=== PATIENT | male | born 1970 | race Caucasian/White ===

== ENCOUNTER 2016-12-09 19:32 | Emergency (ER) | payer BC, MEDICARE ==
[~2016-12-09] VITALS: Ht 170.1 cm; Wt 187.8 kg
[~2016-12-09 19:32] MED LIST: ALBUTEROL0.09 MG/A2 IH; AMARYL1 MG PO; AMARYL2 MG PO; AMARYL4 MG PO; AUGMENTIN 875 M1 TAB PO; AUGMENTIN XR 101 TER PO; CIPRODEX 0.3%-7.5 ML OT; CLARITIN10 MG PO; CLINDAMYCIN HC150 MG PO; CLINDAMYCIN HC300 MG PO; COMBIVENT1 ARO IH; DEPO TESTOS200 MG/ML IM; DULE1ARO1 INH; DUONEB 3 MG/3 ML3 M1 INH; HUMALOG100 U/ML SC; HYDROCODONE BIT1 T11 PO; K-DUR20 MEQ PO; KEFLEX500 M1 PO; LANTUS100 U/ML SC; LASIX40 MG PO; LEVAQUIN750 M1 PO; LEVOFLOXACIN500 MG PO; LISINOPRIL2.5 MG PO; MEDROL DOSEPAK4 MG PO; MOTRIN800 MG PO; Medrol Dosepak4 MG PO; PERCOCET 325 MG1 TA7 PO; PRAVACHOL10 MG PO; PREDNICOT10 MG PO; PREDNISONE10 MG PO; PRILOSEC20 MG PO; PRILOSEC40 M1 PO; PROAIR HFA8.5 GM INH; SYMBICORT1 AE1 IH; VIBRAMYCIN100 MG PO; VICODIN 500 MG-1 TAB PO; VICODIN ES 7501 TAB PO
[2016-12-09 19:39] VITALS: BP 150/85
[2016-12-09] MEDS ORDERED: IBU800 MG PO (21:13)
[2016-12-09] MEDS ORDERED: ROBAXIN500 M1 PO (21:13)
[2016-12-16] MEDS ORDERED: PRAVASTATIN SOD10 MG PO (18:02)
[2016-12-16] MEDS ORDERED: LANTUS100 U/ML SC (18:03)
[2016-12-16] MEDS ORDERED: CLINDAMYCIN150 MG PO (18:24)
[2016-12-22] MEDS ORDERED: CHLORHEXIDINE T (16:45)
[2016-12-22] MEDS ORDERED: LEVAQUIN750 M1 PO (16:45)
[2016-12-22] MEDS ORDERED: VITAMIN D50000 I3 PO (16:45)
[2016-12-22] MEDS ORDERED: HUMALOG100 U/ML SC (16:45)
[2016-12-22] MEDS ORDERED: LEVEMIR10 ML SC ×2 (16:45)
[2016-12-22] MEDS ORDERED: GERI HYDROLAC T (16:45)
== END 2016-12-09 21:30 | disposition home or self-care (01) ==
LOC: ED 19:32
DX: S39.012A Strain of muscle, fascia and tendon of lower back, initial encounter (principal); M25.551 Pain in right hip; M25.562 Pain in left knee; Z90.49 Acquired absence of other specified parts of digestive tract; W18.49XA Other slipping, tripping and stumbling without falling, initial encounter; Y93.89 Activity, other specified; Y92.89 Other specified places as the place of occurrence of the external cause; Y99.9 Unspecified external cause status

== ENCOUNTER → 2016-12-16 | Outpatient (CLI) | payer BC, MEDICARE ==
[~2016-12-16] MED LIST changes: +CHLORHEXIDINE T; +CLINDAMYCIN150 MG PO; +GERI HYDROLAC T; +IBU800 MG PO; +LEVEMIR10 ML SC; +PRAVASTATIN SOD10 MG PO; +ROBAXIN500 M1 PO; +VITAMIN D50000 I3 PO
== END | disposition home or self-care (01) ==
LOC: ORTHO 01:17
DX: M25.551 Pain in right hip (principal); Z91.81 History of falling

== ENCOUNTER 2017-03-09 14:43 | Inpatient (IN) | payer BC, MEDICARE ==
[2017-03-09] VITALS (8 sets, daily range): BP systolic 120–140; BP diastolic 54–80
[~2017-03-09] VITALS: Ht 167.6 cm; Wt 199.6 kg
--- NOTE | ~2017-03-09 | PR ---
[place], [place] PROGRESS NOTE NAME: GRACIELA [facility]UEVARA JR [id number] UNIT #: [id number] ROOM: 427 DOCTOR: CYNDIE YANCEY MD,BAM BIRTHDATE: [birth year] DOS: 03/15/2017 PULMONARY PROGRESS NOTE SUBJECTIVE: He has been noticed with further reduction in pulmonary respiratory symptoms, coughing, wheezing. He has been feeling better and was wishing for home discharge. OBJECTIVE: VITAL SIGNS: For the patient, which has been recorded showed the blood pressure noted as normal, it was ____ noted 142/84, heart rate of 86, respiratory rate 20 with a normal temperature. Pulse oxygen saturation on room air was 94% saturation recorded as well. HEENT: Showed chronic obesity. NECK: Supple. CARDIOVASCULAR: S1, S2 audible. LUNGS: The patient was noted without any crackles or rhonchi. Mild expiratory wheezing noted, improved from previous. ABDOMEN: Soft, nontender. IMPRESSION: 1. Progressive resolution of the acute on chronic hypercapnia hypoxic respiratory failure. 2. Acute exacerbation of bronchial asthma. 3. History of obstructive sleep apnea disorder and severe morbid obesity. PLAN FOR TREATMENT: No changes in the plan of management at this time, continue the patient's current therapy, plan of care as previously. Usual care. Supportive plan of management and care. BAM AGEE MD CM:PNTRANS [phone] BAM YANCEY MD 03/16/17 0349 interface
--- NOTE | ~2017-03-09 | CON ---
[place], [place] REPORT OF CONSULTATION NAME: GRACIELA GUEVARA JR [facility] #: [id number] UNIT #: [id number] ROOM: [facility] DOCTOR: BAM GONZÁLES MD BIRTHDATE: [birth year] DOS: 03/10/2017 CONSULTATION REQUESTED BY: Hospitalist services. REASON FOR CONSULTATION: For assessment of current acute respiratory failure. HISTORY OF PRESENT ILLNESS: A 46-year-old white male who has been known to me in the past with history of chronic hypercapnic, hypoxic respiratory failure and bronchial asthma, as well as congestive heart failure, cor pulmonale and obstructive sleep apnea disorder. The patient presented to the Emergency Room and has been hospitalized on 03/09/2017. The patient stated that he has developed significant shortness breath, which has occurred in the past 3 days with increased coughing, chest congestion and some sputum expectoration. The patient also developed fever with symptoms. Denies symptoms of hemoptysis. Denies any symptoms of acute chest pain. The patient has been hospitalized in Intensive Care Unit noted with acute hypercapnic and hypoxic respiratory failure, chronic hypercapnia and hypoxic respiratory failure. Currently, the patient has been getting oxygen supplementation nasal cannula, which has been just given to the patient during the time of eating with a saturation noted as 88-89% on 4 L nasal cannula previously the patient has been started on the BiPAP setting of 10/24. REVIEW OF SYSTEMS: CONSTITUTIONAL: Fatigue and tiredness described with fever of 101 degrees Fahrenheit with some chills as well. EYES: Denies burning, redness, or tenderness. EARS, NOSE, THROAT SYMPTOMS: No sore throat, hoarseness, otalgia, postnasal drainage. CARDIOVASCULAR: Denies anginal pain, edema or pain of lower extremities. GASTROINTESTINAL: Denies dysphagia, nausea, vomiting, diarrhea, abdominal pain, hematemesis, melena or hematochezia. Denies history of abnormal weight loss noted with severe morbid obesity, which is chronic. GENITOURINARY: Denies dysuria, suprapubic pain, hematuria. MUSCULOSKELETAL: Denies any acute joint pain, redness, or tenderness. SKIN: Denies lesions or rashes. Chronic venous stasis pigmentation of the lower extremities were known. CENTRAL NERVOUS SYSTEM: Denies dizziness, headache, diplopia, syncopal episodes or headache. Remaining systems were reviewed with the patient, they were noted all negative. PAST MEDICAL HISTORY: Noted with previous hospitalization in 12/2016. At that time, the patient was treated for acute exacerbation of bronchial asthma, acute tracheobronchitis. The patient had bronchoscopy done on that admission as well for the removal of the mucous impaction of major airways. 1. Past medical history was noted with uncomplicated severe persistent bronchial asthma. 2. Type 2 diabetes mellitus. 3. Obstructive sleep apnea disorder. 4. Chronic lymphedema and stasis dermatitis of the lower extremities. 5. History of severe morbid obesity as well. [place], [place] REPORT OF CONSULTATION NAME: GRACIELA GUEVARA JR UNIT #: [id number] ROOM: [facility] DOCTOR: CYNDIE YANCEY MD,BAM BIRTHDATE: [birth year] PAST SURGICAL HISTORY: 1. Appendectomy at the age of [age] years old. 2. T and A. 3. Fiberoptic bronchoscopy in 12/2016. SOCIAL HISTORY: The patient is , was living at home. He denies any history of tobacco, alcohol or illicit drug use. Denies any occupation related pulmonary exposure. FAMILY HISTORY: The patient was noted remarkable congestive heart failure, coronary artery disease and diabetes mellitus. MEDICATIONS: Current administered medication was noted as use of Lovenox for DVT prophylaxis, Protonix, IV Solu-Medrol 60 mg q.8 hours, DuoNeb q.4 hours, Levaquin, and other p.r.n. medications management. ALLERGIES: The drug allergy history of the patient noted as no known drug allergies. PHYSICAL EXAMINATION: GENERAL: A 46-year-old white male currently noted to be awake and alert without any distress. Height of 5 feet 7 inches, weight of 440 pounds, BMI 71.0. VITAL SIGNS: Shows a normal temperature, respiratory rate recorded as 20-21. Heart rate of 112 for the patient to 140 beats per minute. The blood pressure ranges between 150/82 to 130/57. HEENT: Examination shows chronic severe obesity. Head was atraumatic. Eyes nonicterus. Decreased posterior pharyngeal space. CARDIOVASCULAR: S1, S2 audible. LUNGS: The patient was noted without any crackles. Expiratory wheezing was present bilaterally. ABDOMEN: Soft, nontender. EXTREMITIES: Showed chronic lymph edema. Chronic venous stasis pigmentation changes without any acute abnormalities such as blisters of the skin or others. CENTRAL NERVOUS SYSTEM: Cranial nerves 2 through 12 intact. No focal deficits. MUSCULOSKELETAL SYMPTOM: No deformities. LABORATORY DATA: The lactic acid noted 2.4 on admission on 03/09/2017, follow up lactic acid of 1.5. CBC of the patient of 03/09/2017 shows WBC count of 12.9, hemoglobin of 12.6, hematocrit 38.9, platelet count was normal. The CBC of this morning shows WBC count was normal, hemoglobin 12.7, hematocrit 41.0, platelet count was normal. CMP for the patient that was done on 03/09/2017 shows glucose of 104, BUN and creatinine was normal. Remaining electrolytes were normal. Lipase was normal. Arterial blood gas for the patient on 03/09/2017, pH of 7.35, pCO2 of 53.4, pO2 of 371 on 100% oxygen supplementation. Additional including yesterday was done, which are noted all normal ranges. CMP for the patient this morning shows BUN 9, creatinine was 0.65. Sodium 135, remaining electrolytes were normal. Chest x-ray of the patient does not show any acute infiltration, limited finding because of the current large body habitus. The patient had a CT scan of the chest, which was done as a CTA [place], [place] REPORT OF CONSULTATION NAME: PAOLA JRGRACIELA C UNIT #: [id number] ROOM: [facility] DOCTOR: BAM GONZÁLES MD BIRTHDATE: [birth year] protocol yesterday afternoon was noted without any evidence of acute pulmonary embolism. There were no pleural fluid or findings of acute consolidation. IMPRESSION: 1. The patient who has been currently admitted to the hospital noted with acute severe hypoxic respiratory failure, chronic hypoxic respiratory failure and hypercarbia. 2. Acute exacerbation uncomplicated severe persistent bronchial asthma as well. 3. Severe morbid obesity as well. 4. History of obstructive sleep apnea disorder treated with BiPAP. PLAN OF MANAGEMENT: The patient will be continued on the current bronchodilators and oxygen supplementation and changes in the BiPAP has been made to improve his oxygenation requirement and the hypercarbia. The BiPAP setting was changed to 16/10 from previously 12/8. Repeat arterial blood gases as needed. Continuation of the other supportive therapy, plan and management as in progress. Collect the sputum for Gram stain and culture. The patient appeared to expectorate any sputum. The current dose of steroids will be continued for the patient until tomorrow. If further reduction to be done after that. All other supportive therapy, plan and management to be continued as well. Usual care. Further treatment changes will be done based on the progression of the illness. Thanks for allowing me to participate in the care of this patient. BAM AGEE MD CM:CONSTR:REPORT OF CONSULTATION 1059 03/10/17 2232 interface
--- NOTE | ~2017-03-09 | PR ---
[place], [place] PROGRESS NOTE NAME: GRACIELA GUEVARA JR [facility] #: [id number] UNIT #: [id number] ROOM: 427 DOCTOR: CYNDIE YANCEY MD,BAM BIRTHDATE: [birth year] DOS: 03/12/2017 SUBJECTIVE: The patient has been noted without any ongoing acute new complaints at this time. Wheezing was still described with the coughing and shortness of breath, all noted stable from yesterday or partially improved. He has been transferred from the intensive care unit to telemetry floor. This morning, the patient was seen sitting on his recliner chair. OBJECTIVE: VITAL SIGNS: Showed normal temperature, respiratory rate 20, heart rate 71, blood pressure 105/67. Intake for the patient is 2600 mL, output 1300 mL, pulse oxygen saturation on 2 liters nasal cannula 96% saturation. HEENT: Showed no new changes. NECK: Supple and obese. CARDIOVASCULAR: S1, S2 audible. LUNGS: Moderate decreased breath sounds with expiratory wheezing. No crackles. ABDOMEN: Soft, nontender and obese. EXTREMITIES: Showed chronic venous stasis changes pigmentation and lymphedema. LABORATORY DATA: Culture of the sputum for the patient noted normal tiffanie. Vancomycin trough level noted at 19.4 in the high normal range. IMPRESSION: The patient with progressive resolution and reduction of the symptoms are noted from respiratory standpoint. The patient was also noted with resolving acute on chronic hypercapnic and hypoxic respiratory failure and exacerbation of acute bronchial asthma exacerbation and acute tracheobronchitis. PLAN OF TREATMENT: Continue current dose of steroids, bronchodilators, oxygen supplementation, antibiotics, and other treatment plan. Usual care. Supportive plan and management and other therapies. BAM AGEE MD CM:PNTRANS [phone] BAM YANCEY MD 03/13/17 0240 interface
--- NOTE | ~2017-03-09 | PR ---
[place], [place] PROGRESS NOTE NAME: [facility] JR [facility] [id number] UNIT #: [id number] ROOM: 427 DOCTOR: CYNDIE YANCEY MD,BAM BIRTHDATE: [birth year] DOS: 03/13/2017 PULMONARY PROGRESS NOTE SUBJECTIVE: The patient has been noted without any acute distress at this time. Shortness of breath has been improving. The coughing and wheezing were resolving gradually. OBJECTIVE: VITAL SIGNS: Of the patient which have been recorded showed normal temperature, respiratory rate 20, heart rate 70, blood pressure 156/89. The pulse oxygen saturation of the patient on room air was 99% saturation. HEENT: Showed no new change. NECK: Supple and obese. CARDIOVASCULAR SYSTEM: S1, S2 audible. LUNGS: Noted mild to moderate expiratory wheezing. ABDOMEN: Soft and obese. IMPRESSION: 1. Progressive resolution of acute exacerbation of uncomplicated severe persistent bronchial asthma with the resolving acute on chronic hypercapnic hypoxic respiratory failure. 2. History of obstructive sleep apnea disorder. PLAN OF TREATMENT: Discharge planning for the patient could be started with possible discharge home on tapering dose of prednisone, antibiotics, and other plan of treatment. The patient was encouraged and advised both regular use of CPAP for the management of sleep apnea disorder and to continue his other medications. BAM AGEE MD CM:PNTRANS [phone] BAM YANCEY MD 03/14/17 0155 interface
--- NOTE | ~2017-03-09 | PR ---
[place], [place] PROGRESS NOTE NAME: GRACIELA GUEVARA JR [facility] #: [id number] UNIT #: [id number] ROOM: [facility] DOCTOR: BAM GONZÁLES MD BIRTHDATE: [birth year] DOS: 03/11/2017 SUBJECTIVE: He has been noted with reduction of symptoms of shortness of breath. Coughing, wheezing, requirement of the oxygen has been also decreased. He has been expectorating sputum intermittently only small quantity. There were no symptoms of chest pain. The patient has been noted chronic lymphedema of the lower extremities without any superimposed acute edema. OBJECTIVE: VITAL SIGNS: Of the patient, which has been recorded today showed normal temperature, respiratory rate 19, heart rate of 108-87, blood pressure 128/80-113/74. Intake for this patient is 3400 mL, output 3200 mL. Pulse oxygen saturation on 2 liters nasal cannula 92% saturation. HEENT: Showed chronic severe obesity. NECK: Supple and obese. CARDIOVASCULAR: S1, S2 audible. LUNGS: Shows moderate decreased breath and improvement in air entry with moderate expiratory wheezing noted today. There were no crackles. ABDOMEN: Soft, nontender. LABORATORY DATA: Culture of patient on 03/10/2017, preliminary showing normal tiffanie. Gram stain showed many white blood cells, few epithelial cells, few Gram-positive cocci in pairs and clusters and rare budding yeast. Blood culture from the 03/09/2017 showed no bacterial growth. Arterial blood gas that was done yesterday showed pH of 7.32, pCO2 of 58.9, pO2 of 116 on 60% oxygen at that time. IMPRESSION: 1. Resolving chronic hypercapnic and hypoxic respiratory failure. 2. Resolving acute exacerbation of bronchial asthma as well. 3. Acute tracheobronchitis. 4. Severe chronic morbid obesity. 5. Obstructive sleep apnea disorder, noncompliant with the therapy. 6. Chronic lymphedema of the extremities. PLAN OF TREATMENT: Continuation of the bronchodilators and the oxygen supplementation as well as antibiotics. Reduce the dose of Solu-Medrol today for patient to 40 mg every 8 hours from 60 mg q.8 hours. Continuation of other previous treatment as in progress. Usual care. Supportive therapy. The BiPAP to be continued at nighttime and p.r.n. during the day. The patient certainly could be transferred to the medical floor. Reduce the antibiotic spectrum for this patient to Levaquin. The patient would not require any very broad spectrum intravenous antibiotics because of lack of any pneumonia. [place], [place] PROGRESS NOTE NAME: GRACIELA GUEVARA JR UNIT #: [id number] ROOM: [facility] DOCTOR: BAM GONZÁLES MD BIRTHDATE: [birth year] BAM AGEE MD CM:PNTRANS [phone] BAM YANCEY MD 03/11/17 1054 interface
--- NOTE | ~2017-03-09 | PR ---
[place], [place] PROGRESS NOTE NAME: GRACIELA GUEVARA JR UNIT #: [id number] ROOM: 427 DOCTOR: CYNDIE YANCEY MD,BAM BIRTHDATE: [birth year] DOS: 03/14/2017 PULMONARY FOLLOWUP NOTE SUBJECTIVE: He has been still noted with symptoms of coughing and wheezing. Shortness breath has been decreasing. Overall, reduction of the respiratory symptoms has been noted. He denies any chest pain at the present time. OBJECTIVE: VITAL SIGNS: For the patient, which has been recorded shows the temperature of the patient noted as normal, respiratory rate 20, heart rate 77, blood pressure 172/92-136/70. The pulse oxygen saturation of the patient was noted as 97% with the nasal cannula. HEENT: Examination shows chronic obesity. Head was atraumatic. NECK: Supple. CARDIOVASCULAR SYSTEM: S1, S2 is audible. LUNGS: The patient was noted with moderate expiratory wheezing. The patient remains the same as of yesterday, but there were no crackles. ABDOMEN: Soft, nontender. LABORATORY DATA: The vancomycin trough level noted 16.4. BUN and creatinine yesterday was noted as normal. IMPRESSION: 1. The patient with gradual reduction and resolution of the respiratory complaints for the patient noted with the improvement was noted in the acute on chronic hypercapnic and hypoxic respiratory failure. 2. Acute exacerbation of bronchial asthma and acute bronchitis. The cultures of the sputum for this patient from the for the patient were noted as normal tiffanie. PLAN OF TREATMENT: Reduction of the Solu-Medrol dose for the patient will be done to b.i.d. dosing. Discontinuation of the broad spectrum intravenous antibiotics and simple antibiotic administration for the medical management of acute bronchitis. Further treatment changes will be done for the patient based on the progression of the illness. Other supportive plan and management as well. Usual care. The patient was also isolated noted with CORDELL isolation of the patient's past bronchial washing, which will be considered colonization, would not require any treatment. The assessment and management was discussed with the patient's as well. Continue use of the BiPAP for this patient as well. [place], [place] PROGRESS NOTE NAME: GRACIELA GUEVARA JR UNIT #: [id number] ROOM: 427 DOCTOR: BAM GONZÁLES MD BIRTHDATE: [birth year] BMA AGEE MD CM:PNTRANS [phone] BAM YANCEY MD 03/15/17 0416 interface
[2017-03-09 15:14] LABS: BASO # 0.1 10*3/uL (0.0-0.1); BASO % 0.4 % (0.0-1.0); EOS # 0.2 10*3/uL (0.0-0.4); EOS % 1.2 % (1.0-4.0); HEMATOCRIT 38.9 % (42.0-52.0); HEMOGLOBIN 12.6 g/dl (14.0-18.0); IG # 0.1 10*3/uL (0.0-0.1); LYMPH % 7.5 % (27.0-41.0); MEAN CORPUSCULAR HGB 29.8 pg (27.0-31.0); MEAN CORPUSCULAR HGB CONC 32.4 g/dl (33.0-37.0); MONO # 0.6 10*3/uL (0.1-1.0); MONO % 4.3 % (3.0-9.0); NEUT # 11.1 10*3/uL (2.3-7.9); PLATELET COUNT AUTOMATED 241 10*3/uL (130-400); RED BLOOD COUNT 4.23 10*6/uL (4.50-5.90); RED CELL DISTRI WIDTH 14.7 % (0-14.5); WHITE BLOOD COUNT 12.9 10*3/uL (4.8-10.8)
[2017-03-09 15:23] LABS: PROTHROMBIN TIME 10.4 SECONDS (9.0-12.4)
[2017-03-09 15:30] LABS: ALBUMIN 3.1 gm/dl (3.1-4.5); ALKALINE PHOSPHATASE 77 U/L (45-117); BILIRUBIN, TOTAL 0.6 mg/dl (0.2-1.0); BUN 8 mg/dl (7-24); C-REACTIVE PROTEIN 5.59 MG/DL (0-0.3); CARBON DIOXIDE 26 mmol/L (21-32); CHLORIDE 98 mmol/L (98-107); CPK 123 U/L (39-308); EST GLOM FILT AFRICAN AMERICAN > 60 ml/min; GLUCOSE 184 mg/dL (65-99); MAGNESIUM 1.8 mg/dL (1.5-2.1); POTASSIUM 4.3 mmol/L (3.5-5.1); SGOT/AST 31 IU/L (3-35); SGPT/ALT 28 U/L (12-78); SODIUM 136 mmol/L (136-145); TOTAL PROTEIN 7.8 gm/dL (6.4-8.2)
[2017-03-09 15:33] LABS: TROPONIN I < 0.015 ng/ml (<0.045)
[2017-03-09 15:38] LABS: ABG BASE EXCESS 2.8 mmol/L (-2.0-2.0); ABG CO2 CONTENT 30.6 mmol/L (23-27); ABG TEMPERATURE 98.4 F (98.0-99.0); ARTERIAL BLOOD GAS PH 7.353 (7.35-7.45)
[2017-03-09 17:11] LABS: LA>2 REFLEX 2 HR DRAW NOW
[2017-03-09] MEDS ORDERED: DULERA 200 MCG8.8 GM IH (18:00)
[2017-03-09] MEDS ORDERED: AMARYL4 MG PO (18:01)
[2017-03-09] MEDS ORDERED: LANTUS100 U/ML SC (18:01)
[2017-03-09] MEDS ORDERED: SPIRIVA RESPIMAT4 G1 IH (18:02)
[2017-03-09] MEDS ORDERED: VITAMIN D32000 UNI1 PO (18:03)
[2017-03-09] MEDS ORDERED: NORCO 5-325 TA1 EACH PO (18:06)
[2017-03-09 18:13] LABS: LA>2 RFLX FOLLOW UP AT 2 HRS 2.5 mmol/L (0.4-2.0)
[2017-03-09 18:26] LABS: CKMB 2.1 ng/ml (0.5-3.6); CPK 124 U/L (39-308)
[2017-03-09 18:33] LABS: TROPONIN I < 0.015 ng/ml (<0.045)
[2017-03-09 20:04] LABS: LA>2 REFLEX 4 HR DRAW NOW
[2017-03-10] VITALS: BP 145/87
[2017-03-10 00:37] LABS: CKMB 2.9 ng/ml (0.5-3.6)
[2017-03-10 00:39] LABS: CPK 156 U/L (39-308); TROPONIN I < 0.015 ng/ml (<0.045)
[2017-03-10 04:00] VITALS: BP 145/80
[2017-03-10 06:11] LABS: HEMOGLOBIN 12.7 g/dl (14.0-18.0); MEAN CORPUSCULAR HGB 28.8 pg (27.0-31.0); PLATELET COUNT AUTOMATED 245 10*3/uL (130-400); RED BLOOD COUNT 4.41 10*6/uL (4.50-5.90); RED CELL DISTRI WIDTH 14.5 % (0-14.5); WHITE BLOOD COUNT 10.1 10*3/uL (4.8-10.8)
[2017-03-10 06:13] LABS: CKMB 2.8 ng/ml (0.5-3.6); CPK 139 U/L (39-308)
[2017-03-10 06:14] LABS: TROPONIN I < 0.015 ng/ml (<0.045)
[2017-03-10 06:20] LABS: ALBUMIN 3.1 gm/dl (3.1-4.5); ALKALINE PHOSPHATASE 74 U/L (45-117); BILIRUBIN, TOTAL 0.5 mg/dl (0.2-1.0); BUN 9 mg/dl (7-24); CARBON DIOXIDE 31 mmol/L (21-32); CHLORIDE 99 mmol/L (98-107); CHOLESTEROL 128 mg/dL (<200); EST GLOM FILT AFRICAN AMERICAN > 60 ml/min; FREE T4 1.04 ng/dl (0.76-1.46); GLUCOSE 280 mg/dL (65-99); HDL CHOLESTEROL 51 mg/dl (40-60); LDL CHOLESTEROL 64 mg/dL (9-159); MAGNESIUM 2.4 mg/dL (1.5-2.1); PHOSPHOROUS 2.9 mg/dL (2.5-4.9); POTASSIUM 4.5 mmol/L (3.5-5.1); SGOT/AST 24 IU/L (3-35); SGPT/ALT 29 U/L (12-78); SODIUM 135 mmol/L (136-145); TOTAL PROTEIN 7.9 gm/dL (6.4-8.2); TRIGLYCERIDES 64 mg/dl (<150); VLDL CHOLESTEROL 13 mg/dL (6-40)
[2017-03-10 06:25] LABS: THYROID STIM HORMONE (HS) 0.506 uIU/ml (0.358-4.75)
[2017-03-10 06:55] LABS: PROTHROMBIN TIME 10.5 SECONDS (9.0-12.4)
[2017-03-10 07:00] LABS: HEMOGLOBIN A1c 8.3 % (4.8-5.6)
[2017-03-10 07:13] LABS: BASOPHIL # 0.1 10*3/uL (0-0.1); BASOPHILS 1 % (0-1); LYMPHOCYTE # 0.2 10*3/uL (1.3-4.4); NEUTROPHIL # 9.8 10*3/uL (2.3-7.9); NEUTROPHILS 97 % (47-73); PLATELET SUFFICIENCY NORMAL (NORMAL); TOTAL CELLS COUNTED 100 #CELLS
[2017-03-10 07:14] LABS: VITAMIN D, 25-HYDROXY 30.1 ng/mL (30-100)
[2017-03-10 07:15] LABS: FOLIC ACID 9.98 ng/mL (>5.38)
[2017-03-10 08:00] VITALS: BP 150/80
[2017-03-10 08:14] LABS: ABG CO2 CONTENT 32.9 mmol/L (23-27); ABG HCO3 31.1 mmol/l (22-26); ABG TEMPERATURE 97.6 F (98.0-99.0); ARTERIAL BLOOD GAS PH 7.338 (7.35-7.45)
[2017-03-10 12:00] VITALS: BP 148/74
[2017-03-10 16:00] VITALS: BP 160/60
[2017-03-10 20:00] VITALS: BP 148/78
[2017-03-11] VITALS: BP 109/67
[2017-03-11 03:45] VITALS: BP 113/74
[2017-03-11 08:00] VITALS: BP 128/80
[2017-03-11 12:34] VITALS: BP 140/63
[2017-03-11 16:00] VITALS: BP 130/71
[2017-03-11 20:00] VITALS: BP 159/73
[2017-03-12] VITALS: BP 134/77
[2017-03-12 08:00] VITALS: BP 105/67
[2017-03-12 16:00] VITALS: BP 127/81
[2017-03-12 20:00] VITALS: BP 146/72
[2017-03-13] VITALS: BP 154/88
[2017-03-13 06:05] LABS: BASO % 0.1 % (0.0-1.0); HEMATOCRIT 39.2 % (42.0-52.0); HEMOGLOBIN 12.5 g/dl (14.0-18.0); IG # 0.1 10*3/uL (0.0-0.1); LYMPH # 1.8 10*3/uL (1.3-4.4); LYMPH % 18.9 % (27.0-41.0); MEAN CELL VOLUME 93.8 fl (80.0-94.0); MEAN CORPUSCULAR HGB 29.9 pg (27.0-31.0); MEAN CORPUSCULAR HGB CONC 31.9 g/dl (33.0-37.0); MEAN PLATELET VOLUME 10.1 fl (9.6-12.3); MONO # 0.4 10*3/uL (0.1-1.0); MONO % 4.5 % (3.0-9.0); NEUT # 6.9 10*3/uL (2.3-7.9); NEUT % 75.1 % (47.0-73.0); PLATELET COUNT AUTOMATED 267 10*3/uL (130-400); RED BLOOD COUNT 4.18 10*6/uL (4.50-5.90); RED CELL DISTRI WIDTH 14.3 % (0-14.5); WHITE BLOOD COUNT 9.3 10*3/uL (4.8-10.8)
[2017-03-13 06:21] LABS: BUN 16 mg/dl (7-24); EST GLOM FILT AFRICAN AMERICAN > 60 ml/min
[2017-03-13 08:00] VITALS: BP 156/89
[2017-03-13 12:00] VITALS: BP 156/73
[2017-03-13 16:00] VITALS: BP 138/68
[2017-03-13 20:00] VITALS: BP 136/70
[2017-03-14 08:00] VITALS: BP 172/92
[2017-03-14 16:00] VITALS: BP 135/111
[2017-03-14 20:00] VITALS: BP 148/83
[2017-03-15] VITALS: BP 150/85
[2017-03-15 08:00] VITALS: BP 142/84
[2017-03-15] MEDS ORDERED: LEVAQUIN750 M1 PO (13:48)
[2017-03-15] MEDS ORDERED: PREDNISONE10 MG PO (13:48)
== END 2017-03-15 15:13 | disposition home or self-care (01) | DRG 871 ==
LOC: ED 14:43 → ICCU 15:52 → EDHOLD 15:52 → ICCU 16:39 → 4E 03-11 11:55
PROVIDERS: Internal Medicine; Internal Medicine Critical Care Medicine; Student in an Organized Health Care Education/Training Program
PROC: 5A09457 Assistance with Respiratory Ventilation, 24-96 Consecutive Hours, Continuous Positive Airway Pressure (ICD-10-PCS; principal; 2017-03-09)
DX: A41.9 Sepsis, unspecified organism (principal); J18.9 Pneumonia, unspecified organism; J96.21 Acute and chronic respiratory failure with hypoxia; E44.0 Moderate protein-calorie malnutrition; J44.0 Chronic obstructive pulmonary disease with (acute) lower respiratory infection; J45.901 Unspecified asthma with (acute) exacerbation; Z99.81 Dependence on supplemental oxygen; I50.9 Heart failure, unspecified; J96.22 Acute and chronic respiratory failure with hypercapnia; E66.2 Morbid (severe) obesity with alveolar hypoventilation; Z68.45 Body mass index [BMI] 70 or greater, adult; E87.1 Hypo-osmolality and hyponatremia; R65.20 Severe sepsis without septic shock; D64.9 Anemia, unspecified; E11.65 Type 2 diabetes mellitus with hyperglycemia; E83.41 Hypermagnesemia; J44.9 Chronic obstructive pulmonary disease, unspecified; J20.9 Acute bronchitis, unspecified; Z72.0 Tobacco use; Z82.5 Family history of asthma and other chronic lower respiratory diseases; Z82.49 Family history of ischemic heart disease and other diseases of the circulatory system; Z83.3 Family history of diabetes mellitus; Z79.899 Other long term (current) drug therapy

== ENCOUNTER 2017-03-28 14:33 | Inpatient (IN) | payer BC, MEDICARE ==
[~2017-03-28] VITALS: Ht 170.2 cm; Wt 187.8 kg
--- NOTE | ~2017-03-28 | EKG ---
[place], [place] ELECTROCARDIOGRAM REPORT NAME: GRACIELA GUEVARA JR UNIT #: [id number] ROOM: 520 DOCTOR: KATHERIN YUAN MD BIRTHDATE: [birth year] DOS: 03/28/2017 TIME: 1534 hours. FINDINGS: 1. Normal sinus rhythm at 75 beats per minute. 2. The tracing is normal. 3. No previous tracing is available for comparison. KATHERIN YUAN MD CM:EKGRPT:ELECTROCARDIOGRAM REPORT [id number] KATHERIN YUAN MD
[~2017-03-28 14:33] MED LIST changes: +DULERA 200 MCG8.8 GM IH; +NORCO 5-325 TA1 EACH PO; +SPIRIVA RESPIMAT4 G1 IH; +VITAMIN D32000 UNI1 PO
[2017-03-28 15:04] VITALS: BP 164/78
[2017-03-28 15:36] LABS: BASO % 0.1 % (0.0-1.0); EOS % 0.1 % (1.0-4.0); HEMATOCRIT 43.2 % (42.0-52.0); HEMOGLOBIN 14.1 g/dl (14.0-18.0); IG # 0.1 10*3/uL (0.0-0.1); LYMPH # 3.2 10*3/uL (1.3-4.4); LYMPH % 22.4 % (27.0-41.0); MEAN CELL VOLUME 91.3 fl (80.0-94.0); MEAN CORPUSCULAR HGB 29.8 pg (27.0-31.0); MEAN CORPUSCULAR HGB CONC 32.6 g/dl (33.0-37.0); MEAN PLATELET VOLUME 10.2 fl (9.6-12.3); MONO # 0.7 10*3/uL (0.1-1.0); MONO % 4.7 % (3.0-9.0); NEUT # 10.3 10*3/uL (2.3-7.9); NEUT % 72.3 % (47.0-73.0); PLATELET COUNT AUTOMATED 189 10*3/uL (130-400); RED BLOOD COUNT 4.73 10*6/uL (4.50-5.90); RED CELL DISTRI WIDTH 14.1 % (0-14.5); WHITE BLOOD COUNT 14.2 10*3/uL (4.8-10.8)
[2017-03-28 15:45] LABS: PROTHROMBIN TIME 10.2 SECONDS (9.0-12.4)
[2017-03-28 16:00] LABS: ALBUMIN 3.4 gm/dl (3.1-4.5); ALKALINE PHOSPHATASE 84 U/L (45-117); BILIRUBIN, TOTAL 0.5 mg/dl (0.2-1.0); BUN 11 mg/dl (7-24); C-REACTIVE PROTEIN 1.75 MG/DL (0-0.3); CARBON DIOXIDE 26 mmol/L (21-32); CHLORIDE 100 mmol/L (98-107); CKMB 0.6 ng/ml (0.5-3.6); CPK 40 U/L (39-308); EST GLOM FILT AFRICAN AMERICAN > 60 ml/min; GLUCOSE 168 mg/dL (65-99); MAGNESIUM 1.9 mg/dL (1.5-2.1); POTASSIUM 4.2 mmol/L (3.5-5.1); SGOT/AST 28 IU/L (3-35); SGPT/ALT 52 U/L (12-78); SODIUM 137 mmol/L (136-145); TOTAL PROTEIN 7.2 gm/dL (6.4-8.2)
[2017-03-28 16:09] VITALS: BP 142/83
[2017-03-28 16:13] LABS: BILIRUBIN NEGATIVE (NEGATIVE); BLOOD NEGATIVE (NEGATIVE); CLARITY CLEAR (CLEAR); COLOR YELLOW (YELLOW); GLUCOSE NEGATIVE (NEGATIVE); KETONE NEGATIVE (NEGATIVE); LEUKO ESTERASE NEGATIVE (NEGATIVE); NITRITE NEGATIVE (NEGATIVE); PROTEIN NEGATIVE (NEGATIVE); UROBILINOGEN 0.2 E.U./dl (0.2-1.0)
[2017-03-28 16:23] LABS: TROPONIN I < 0.015 ng/ml (<0.045)
[2017-03-28 16:32] LABS: BACTERIA TRACE; URINE REFLEX COMMENT NO (NO)
[2017-03-28 17:04] VITALS: BP 140/80
[2017-03-28 18:00] VITALS: BP 138/80
[2017-03-28 20:00] VITALS: BP 110/62
[2017-03-28 22:50] LABS: CKMB 0.7 ng/ml (0.5-3.6); CPK 39 U/L (39-308)
[2017-03-28 22:54] LABS: TROPONIN I < 0.015 ng/ml (<0.045)
[2017-03-29] VITALS: BP 123/65
[2017-03-29 04:24] LABS: BASO % 0.2 % (0.0-1.0); EOS # 0.1 10*3/uL (0.0-0.4); EOS % 0.8 % (1.0-4.0); HEMATOCRIT 39.9 % (42.0-52.0); HEMOGLOBIN 12.6 g/dl (14.0-18.0); LYMPH # 3.9 10*3/uL (1.3-4.4); LYMPH % 35.2 % (27.0-41.0); MEAN CELL VOLUME 93.9 fl (80.0-94.0); MEAN CORPUSCULAR HGB 29.6 pg (27.0-31.0); MEAN CORPUSCULAR HGB CONC 31.6 g/dl (33.0-37.0); MEAN PLATELET VOLUME 9.7 fl (9.6-12.3); MONO # 0.7 10*3/uL (0.1-1.0); MONO % 6.4 % (3.0-9.0); NEUT # 6.3 10*3/uL (2.3-7.9); NEUT % 57.1 % (47.0-73.0); PLATELET COUNT AUTOMATED 157 10*3/uL (130-400); RED BLOOD COUNT 4.25 10*6/uL (4.50-5.90); RED CELL DISTRI WIDTH 14.5 % (0-14.5)
[2017-03-29 04:43] LABS: ALBUMIN 2.9 gm/dl (3.1-4.5); ALKALINE PHOSPHATASE 62 U/L (45-117); BILIRUBIN, TOTAL 0.4 mg/dl (0.2-1.0); BUN 10 mg/dl (7-24); CARBON DIOXIDE 29 mmol/L (21-32); CHLORIDE 103 mmol/L (98-107); EST GLOM FILT AFRICAN AMERICAN > 60 ml/min; GLUCOSE 113 mg/dL (65-99); PHOSPHOROUS 6.1 mg/dL (2.5-4.9); POTASSIUM 3.8 mmol/L (3.5-5.1); SGOT/AST 31 IU/L (3-35); SGPT/ALT 47 U/L (12-78); SODIUM 143 mmol/L (136-145); TOTAL PROTEIN 6.1 gm/dL (6.4-8.2)
[2017-03-29 04:46] LABS: CKMB 0.6 ng/ml (0.5-3.6); CPK 34 U/L (39-308)
[2017-03-29 04:49] LABS: TROPONIN I < 0.015 ng/ml (<0.045)
[2017-03-29 04:50] LABS: HEMOGLOBIN A1c 8.5 % (4.8-5.6)
[2017-03-29 04:51] LABS: THYROID STIM HORMONE (HS) 0.657 uIU/ml (0.358-4.75)
[2017-03-29 08:00] VITALS: BP 134/86
[2017-03-29 08:35] LABS: FOLIC ACID 8.72 ng/mL (>5.38); VITAMIN D, 25-HYDROXY 35.7 ng/mL (30-100)
[2017-03-29 12:00] VITALS: BP 119/53
== END 2017-03-29 14:22 | disposition home or self-care (01) | DRG 312 ==
LOC: ED 14:33 → EDHOLD 17:41 → 5E 18:50
PROVIDERS: Emergency Medicine; Internal Medicine; Internal Medicine Hospice and Palliative Medicine
DX: R55 Syncope and collapse (principal); J96.11 Chronic respiratory failure with hypoxia; B37.0 Candidal stomatitis; E44.0 Moderate protein-calorie malnutrition; E11.65 Type 2 diabetes mellitus with hyperglycemia; Z99.81 Dependence on supplemental oxygen; Z68.44 Body mass index [BMI] 60.0-69.9, adult; E66.01 Morbid (severe) obesity due to excess calories; D72.829 Elevated white blood cell count, unspecified; K02.9 Dental caries, unspecified; I89.0 Lymphedema, not elsewhere classified; G47.33 Obstructive sleep apnea (adult) (pediatric); M62.838 Other muscle spasm; J44.9 Chronic obstructive pulmonary disease, unspecified; E78.00 Pure hypercholesterolemia, unspecified; I10 Essential (primary) hypertension; E55.9 Vitamin D deficiency, unspecified; Z79.4 Long term (current) use of insulin; Z90.49 Acquired absence of other specified parts of digestive tract; Z83.3 Family history of diabetes mellitus; Z82.49 Family history of ischemic heart disease and other diseases of the circulatory system; Z79.899 Other long term (current) drug therapy

== ENCOUNTER → 2017-04-02 | Outpatient (CLI) | payer BC, MEDICARE | END | disposition home or self-care (01) | LOC: CARD 08:20 | DX: R55 Syncope and collapse (principal) ==

== ENCOUNTER 2017-07-01 06:56 | Emergency (ER) | payer OTHER, MEDICARE ==
[~2017-07-01] VITALS: Ht 170.1 cm; Wt 181.4 kg
[2017-07-01 07:03] VITALS: BP 153/80
[2017-07-01 07:43] LABS: BASO # 0.1 10*3/uL (0.0-0.1); BASO % 0.6 % (0.0-1.0); EOS # 0.4 10*3/uL (0.0-0.4); EOS % 3.8 % (1.0-4.0); HEMATOCRIT 40.2 % (42.0-52.0); HEMOGLOBIN 12.9 g/dl (14.0-18.0); LYMPH % 29.7 % (27.0-41.0); MEAN CELL VOLUME 90.7 fl (80.0-94.0); MEAN CORPUSCULAR HGB 29.1 pg (27.0-31.0); MEAN CORPUSCULAR HGB CONC 32.1 g/dl (33.0-37.0); MEAN PLATELET VOLUME 10.2 fl (9.6-12.3); MONO # 0.7 10*3/uL (0.1-1.0); MONO % 6.6 % (3.0-9.0); NEUT % 58.9 % (47.0-73.0); PLATELET COUNT AUTOMATED 244 10*3/uL (130-400); RED BLOOD COUNT 4.43 10*6/uL (4.50-5.90); RED CELL DISTRI WIDTH 13.6 % (0-14.5); WHITE BLOOD COUNT 10.2 10*3/uL (4.8-10.8)
[2017-07-01 07:55] LABS: BUN 8 mg/dl (7-24); CARBON DIOXIDE 34 mmol/L (21-32); CHLORIDE 92 mmol/L (98-107); EST GLOM FILT AFRICAN AMERICAN > 60 ml/min; GLUCOSE 427 mg/dL (65-99); POTASSIUM 3.9 mmol/L (3.5-5.1); SODIUM 132 mmol/L (136-145)
[2017-07-01] MEDS ORDERED: VIBRAMYCIN100 MG PO (09:05)
== END 2017-07-01 09:52 | disposition home or self-care (01) ==
LOC: ED 06:56
PROVIDERS: Emergency Medicine
DX: J40 Bronchitis, not specified as acute or chronic (principal); I10 Essential (primary) hypertension; J45.909 Unspecified asthma, uncomplicated; J44.9 Chronic obstructive pulmonary disease, unspecified; E11.9 Type 2 diabetes mellitus without complications; E78.00 Pure hypercholesterolemia, unspecified; Z79.899 Other long term (current) drug therapy

== ENCOUNTER 2017-07-30 12:20 | Inpatient (IN) | payer OTHER, MEDICARE ==
[~2017-07-30] VITALS: Ht 170.1 cm; Wt 181.2 kg
--- NOTE | ~2017-07-30 | CON ---
[place], [place] REPORT OF CONSULTATION NAME: GRACIELA GUEVARA JR [facility] #: [id number] UNIT #: [id number] ROOM: 530 DOCTOR: KAIT GODOYAYESHA BIRTHDATE: [birth year] DOS: 07/31/2017 REASON FOR CONSULTATION: Acute COPD exacerbation by the hospitalist service. HISTORY OF PRESENT ILLNESS: The patient is a 47-year-old male who presents to the [facility] with chief complaint of shortness of breath both resting and exertional. The patient did say that he has been having productive cough with white sputum production. The patient was having shortness of breath with ambulating. Few months ago, he went to the ER and was found to have acute bronchitis, was given doxycycline. He improved slightly on doxycycline, but continued to be short of breath, so he went to his PCP, Dr. Lackey who gave him prednisone taper 2 weeks ago. The patient finished 2 weeks of prednisone taper, but after that he felt better and then his symptoms slowly returned and he was using more than usual oxygen at home than needed. The patient denies any other complaints at this time. The patient denies chest pain, nausea, vomiting, diarrhea. The patient uses 1 liter of nasal cannula. PAST MEDICAL HISTORY: COPD, essential hypertension, hyponatremia, chronic lymphedema of bilateral lower extremities, morbid obesity, diabetes mellitus, metabolic syndrome. PAST SURGICAL HISTORY: Appendectomy, bronchoscopy, tonsil and adenoidectomy. FAMILY HISTORY: Mother at age 80 due to heart disease. Father at age 76 due to diabetes and cardiac disease. Sister also has diabetes and cardiac disease. ALLERGIES: No known allergies. HOME MEDICATIONS: ProAir 2 puffs inhaled q.i.d. p.r.n., vitamin D3 2000 units p.o. daily, Lasix 40 mg p.o. daily, Amaryl 4 mg p.o. daily, [place] 5/325 two tabs p.o. q.6 hours, DuoNeb 3 mL every 4 hours p.r.n., lisinopril 2.5 mg p.o. daily, Dulera 13 g inhaled b.i.d., pravastatin 10 mg p.o. at bedtime, Spiriva 4 mg inhaled daily. REVIEW OF SYSTEMS: GENERAL: The patient reports weight loss of 60 pounds intentional. The patient denies fever, chills or weight gain. HEENT: The patient denies vision changes, hearing loss, nasal discharge, ear discharge, ear pain, blurred vision. CARDIOVASCULAR: Reports chronic lymphedema bilaterally at the lower extremities. No chest pain, no palpitation. RESPIRATORY: Reports shortness of breath, cough, wheezing. Reports dyspnea on exertion, reports paroxysmal nocturnal dyspnea, sputum production. Denies hemoptysis or stridor. GASTROINTESTINAL: Denies abdominal pain, nausea, vomiting, diarrhea or constipation. GENITOURINARY: Denies dysuria, hematuria increase or decrease in frequency. NEUROLOGIC: Denies lightheadedness, dizziness, confusion. PSYCHIATRIC: Denies depression, anxiety, substance abuse. [place], [place] REPORT OF CONSULTATION NAME: GRACIELA GUEVARA JR UNIT #: [id number] ROOM: [facility] DOCTOR: AYESHA CARBALLO DO BIRTHDATE: [birth year] ENDOCRINE: Denies polydipsia, heat intolerance, or cold intolerance. SKIN: Denies any rashes, lesions or ulcers. PHYSICAL EXAMINATION: VITAL SIGNS: Temperature 97.6, pulse 96, respiratory rate 20, blood pressure is 128/74, pulse ox 91 on 2 liters of nasal cannula. GENERAL: Alert, awake, pleasant, cooperative, mild distress. HEAD: Normocephalic, atraumatic. EYES: No lesion, no ulceration. Nonicteric. No drainage. EARS: No scars or masses. NOSE: Nasal mucosa moist. THROAT: Oral mucosa moist. Multiple dental caries. Poor dentition. NECK: Without masses ulceration, short, obese neck. HEART: Regular rate and rhythm. No gallop, no murmur. LUNGS: No respiratory distress, dyspnea on exertion and shortness of breath, cough, mild expiratory wheezes. ABDOMEN: Soft, obese. Positive bowel sounds. EXTREMITIES: Chronic lymphedema noted. No erythema, no cyanosis. NEUROLOGIC: Grossly intact. Good historian, no focal neurological deficits. Good historian. SKIN: No rashes, no ulcerations. Bilateral lower leg with 3+ edema, which is chronic for the patient. LABORATORY DATA: 07/30/2017, white cell count 9.3, hemoglobin 13.2, platelets 250. 07/31/2017, white cell count 9.2, hemoglobin 13.7, platelet count 260. 07/31/2017, sodium is 132, potassium 4.5, chloride 94, carbon dioxide 31, BUN 10, creatinine 0.77, glucose of 353. INR of 1.1. Blood cultures to date are pending. IMAGING: Chest x-ray done on 07/30/2017 showed normal single image of chest, clear lung tee. Chest is stable in the interval of month. ASSESSMENT AND PLAN: Please refer to Dr. Agee's note on assessment and plan. Continue the patient on antibiotics, steroids and bronchodilator, we will continue to monitor. Thank you for the consult. AYESHA CARBALLO DO [place], [place] REPORT OF CONSULTATION NAME: GRACIELA GUEVARA JR UNIT #: [id number] ROOM: [facility] DOCTOR: AYESHA CARBALLO DO BIRTHDATE: [birth year] BAM AGEE MD CM:CONSTR:REPORT OF CONSULTATION 1123 07/31/17 1527 interface
--- NOTE | ~2017-07-30 | PR ---
[place], [place] PROGRESS NOTE NAME: [facility] [id number] UNIT #: [id number] ROOM: 530 DOCTOR: AYESHA CARBALLO DO BIRTHDATE: [birth year] DOS: 08/01/2017 SUBJECTIVE: The patient was seen and evaluated this morning with Dr. Agee. The patient denies any fever, chills, nausea, vomiting, shortness of breath or chest pain. The patient denies any complaints or concerns at this time. OBJECTIVE: VITAL SIGNS: Temperature 97.8, pulse 104, respiratory rate 20, blood pressure of 121/62, pulse ox of 93 on 2 liters of nasal cannula. HEENT: Shows no changes. NECK: Supple. CARDIOVASCULAR: S1, S2 audible. LUNGS: Mild expiratory wheezes. No rales, rhonchi noted. EXTREMITIES: Chronic lymphadenopathy. ASSESSMENT: 1. Acute exacerbation of uncomplicated severe persistent bronchial asthma with acute bronchitis, after initial improvement with tapering prednisone, antibiotics. 2. Uncontrolled hyperglycemia secondary to underlying diabetes. 3. Obstructive sleep apnea disorder, patient being treated with CPAP at home. 4. Chronic severe morbid obesity. PLAN OF MANAGEMENT: 1. The patient can be discharged on doxycycline 100 mg b.i.d. for 5 days. 2. The patient can be discharged on prednisone taper. 3. Supportive care of therapy. AYESHA CARBALLO DO BAM AGEE MD CM:PNTRANS [phone] AYESHA CABRALLO DO 08/01/17 0933 interface
--- NOTE | ~2017-07-30 | CON ---
[place], [place] REPORT OF CONSULTATION NAME: [id number] UNIT #: [id number] ROOM: 530 DOCTOR: BAM GONZÁLES MD BIRTHDATE: [birth year] DOS: 07/31/2017 The patient was independently seen with [id number] encounter today. History was personally taken and confirmed. Physical examination performed. All the labs were reviewed. Any changes in the treatment or recommendations and assessment were personally made for today's visit. The note which was done by the medical stenographer, was approved. HISTORY OF PRESENT ILLNESS: This is a 47-year-old white male known to me with past history of uncomplicated severe persistent bronchial asthma and obstructive sleep apnea disorder presented to the hospital. The patient was noted with progressive increase in respiratory symptoms. The patient stated he had been noted it for more than three weeks. He was seen by his primary care physician and the Emergency Room as well prior to that. He has been prescribed the antibiotics over 2 weeks ago in the Emergency Room, the patient has not responded to treatment. He was seen by Dr. Lackey and was prescribed tapering dose of prednisone for a total of 9 days. The patient stated symptoms have decreased and improved and he remains essentially well for a few days and after that he has been noted with worsening of the respiratory symptoms. Currently, the patient developed increased symptoms of shortness of breath with cough and wheezing. The coughing has been noted essentially no sputum expectoration. He has been noted with quite severe chest tightness. The patient does complain of symptoms of shortness breath. He stated that he has been using his metered dose inhaler frequently every 4 hours to relieve his shortness of breath. He stated that the oxygen that had been used by the patient was not helping him. REVIEW OF SYSTEMS: Already completed by the medical stenographer for this patient in the consultation. Review of the past medical records patient. The patient has been hospitalized in this hospital last time and treated under care of the Hospitalist Service in 03/2017 for about 4 days for the medical management of near syncopal episode. PAST MEDICAL HISTORY: Refer to my consultation of 03/10/2017 reviewed with the patient and is essentially noted unchanged. SOCIAL HISTORY: Refer to my consultation of 03/10/2017 reviewed with the patient and is essentially noted unchanged. PAST SURGICAL HISTORY: Refer to my consultation of 03/10/2017 reviewed with the patient and is essentially noted unchanged. FAMILY HISTORY: Refer to my consultation of 03/10/2017 reviewed with the patient and is essentially noted unchanged. MEDICATIONS: Vitamin D, lisinopril, Lasix, Lovenox for DVT prophylaxis, DuoNeb, Amaryl, Protonix, Dulera, simvastatin, IV Solu-Medrol 60 mg every 8 hours, Symbicort, Levaquin, and other p.r.n. medications administration. DRUG ALLERGIES: The patient was noted as no known drug allergies. [place], [place] REPORT OF CONSULTATION NAME: GRACIELA GUEVARA JR UNIT #: [id number] ROOM: 530 DOCTOR: BAM GONZÁLES MD BIRTHDATE: [birth year] PHYSICAL EXAMINATION: GENERAL: A 47-year-old white male who has been currently sitting on the chair without any acute distress. Height of 5 feet 7 inches, weight of 399 pounds. VITAL SIGNS: Shows the temperature noted as normal, respiratory rate of 18-24, heart rate 96-102, blood pressure 140/77 to 128/74. Pulse oxygen saturation on 2 L nasal cannula was 91% saturation to 97% saturation recorded since admission. HEENT: Decreased posterior pharyngeal space. Head was atraumatic. Eyes nonicterus. NECK: Supple and obese. CARDIOVASCULAR SYSTEM: S1, S2 audible. LUNGS: Noted with moderate diffuse reduced breath sounds bilaterally with moderate expiratory wheezing. ABDOMEN: Noted soft and obese. EXTREMITIES: Shows chronic venous stasis changes and pigmentation. CENTRAL NERVOUS SYSTEM: Cranial nerves 2-12 intact. No focal deficit. MUSCULOSKELETAL: No deformities. SKIN: Show no lesions or rashes except the lower extremity changes which are noted chronic pigmentation of the skin. LABORATORY DATA: The lactic acid yesterday was noted normal. CBC yesterday was noted as hemoglobin 13.2, hematocrit 41.1, platelet count was normal. PT, PTT for the patient 07/30/2017 was normal. CMP of the patient on 07/30/2017, glucose 264, BUN and creatinine was normal. Sodium 134. Remaining LFTs were normal. CBC this morning remains as normal. CMP of the patient this morning, glucose 353, normal BUN and creatinine, sodium 132, chloride of 94. Albumin 2.9. Remaining LFTs were normal. IMPRESSION: 1. The patient who has been currently admitted to the hospital for acute exacerbation of uncomplicated severe persistent bronchial asthma with acute bronchitis after initial improvement with tapering prednisone antibiotics. 2. Uncontrolled hyperglycemia secondary to underlying diabetes mellitus as well as current use of high dose corticosteroids. 3. Obstructive sleep apnea disorder. The patient was treated with the CPAP from home. 4. History of severe morbid obesity also known. Other medical illnesses are noted in the past history remains unchanged. PLAN OF MANAGEMENT: Reduction in dose of the corticosteroids will be done from today since the patient has responded to treatment in the last 24 hours. He has also resulted improvement in the uncontrolled hyperglycemia. Continue use of the CPAP from home. Oxygen supplementation if saturation is noted 92% or ____. Continue bronchodilators, DuoNeb every 4 hours. Additional treatment changes will be made based on progression of the illness. The patient was noted with hemoglobin A1c 10 suggestive of chronic long-term uncontrolled diabetes as well. The patient has been getting Levaquin 750 mg IV daily, which will be changed to only oral Levaquin, dose for acute bronchitis since the patient does not have any evidence of acute pneumonia. Other supportive therapy, plan of management to be continued as in progress. Maximize the management of diabetes mellitus as well. Supportive care and other therapy plan of management and treatments. [place], [place] REPORT OF CONSULTATION NAME: GRACIELA GUEVARA JR UNIT #: [id number] ROOM: [facility] DOCTOR: BAM GONZÁLES MD BIRTHDATE: [birth year] Usual care. Other additional treatment changes will be made based on the progression of the illness. Thanks for allowing me to participate in the care of this patient. BAM AGEE MD CM:CONSTR:REPORT OF CONSULTATION 1107 07/31/172049 interface
--- NOTE | ~2017-07-30 | PR ---
[place], [place] PROGRESS NOTE NAME: GRACIELA GUEVARA JR [facility] #: [id number] UNIT #: [id number] ROOM: 530 DOCTOR: CYNDIE YANCEY MD,BAM BIRTHDATE: [birth year] DOS: 08/01/2017 The patient was independently seen in [id number] encounter. Physical findings for the patient were personally confirmed. The history was confirmed for the patient. Change in treatment, recommendations and the management changes were personally made for today's visit. Note done by the medical record transcriber, was approved. The patient has been showing progressive resolution improvement in respiratory symptoms with reduction of cough, wheezing, and other symptom. Chest auscultation noted with very minimal wheezing at this time to significant improvement in air entry noted in the lungs bilaterally. No labs were done for the patient today. The echocardiogram was done yesterday, which was noted limited study for this patient. Echocardiogram done with contrast. The patient has shown significant progressive improvement and resolution of acute exacerbation of bronchial asthma, acute tracheobronchitis. It could be considered for home discharge on tapering dose of prednisone and oral antibiotics. Outpatient followup will be kept as previously. BAM AGEE MD CM:AMI [id number] BAM YANCEY MD 08/01/17 1611 interface
[2017-07-30 12:45] VITALS: BP 129/78
[2017-07-30 13:28] LABS: BASO # 0.1 10*3/uL (0.0-0.1); BASO % 0.6 % (0.0-1.0); EOS # 0.3 10*3/uL (0.0-0.4); EOS % 3.6 % (1.0-4.0); HEMATOCRIT 41.1 % (42.0-52.0); HEMOGLOBIN 13.2 g/dl (14.0-18.0); LYMPH # 2.6 10*3/uL (1.3-4.4); LYMPH % 27.8 % (27.0-41.0); MEAN CELL VOLUME 90.7 fl (80.0-94.0); MEAN CORPUSCULAR HGB 29.1 pg (27.0-31.0); MEAN CORPUSCULAR HGB CONC 32.1 g/dl (33.0-37.0); MEAN PLATELET VOLUME 9.9 fl (9.6-12.3); MONO # 0.5 10*3/uL (0.1-1.0); MONO % 5.6 % (3.0-9.0); NEUT # 5.8 10*3/uL (2.3-7.9); PLATELET COUNT AUTOMATED 250 10*3/uL (130-400); RED BLOOD COUNT 4.53 10*6/uL (4.50-5.90); RED CELL DISTRI WIDTH 13.8 % (0-14.5); WHITE BLOOD COUNT 9.3 10*3/uL (4.8-10.8)
[2017-07-30 13:37] LABS: ACT PARTIAL THROMBO TIME 23.1 SECONDS (20.8-31.5)
[2017-07-30 13:47] LABS: ALBUMIN 3.1 gm/dl (3.1-4.5); ALKALINE PHOSPHATASE 97 U/L (45-117); BUN 9 mg/dl (7-24); CHLORIDE 98 mmol/L (98-107); CKMB 0.9 ng/ml (0.5-3.6); CPK 87 U/L (39-308); CREATININE 0.78 mg/dL (0.70-1.30); LIPASE 145 U/L (73-393); MAGNESIUM 1.7 mg/dL (1.5-2.1); POTASSIUM 4.1 mmol/L (3.5-5.1); SGOT/AST 24 IU/L (3-35); SGPT/ALT 32 U/L (12-78); SODIUM 134 mmol/L (136-145); TOTAL PROTEIN 7.4 gm/dL (6.4-8.2)
[2017-07-30 13:49] LABS: TROPONIN I < 0.015 ng/ml (<0.045)
[2017-07-30 15:08] VITALS: BP 140/86
[2017-07-30 16:00] VITALS: BP 146/83
[2017-07-30] MEDS ORDERED: NOVOLOG FL100 UNIT/1 SQ (16:37)
[2017-07-30] MEDS ORDERED: LEVEMIR FL100 UNIT/1 SQ (16:37)
[2017-07-30 20:00] VITALS: BP 140/77
[2017-07-31] VITALS: BP 144/95
[2017-07-31 06:20] LABS: EOS % 0.1 % (1.0-4.0); HEMATOCRIT 42.4 % (42.0-52.0); HEMOGLOBIN 13.7 g/dl (14.0-18.0); LYMPH # 1.3 10*3/uL (1.3-4.4); LYMPH % 13.6 % (27.0-41.0); MEAN CORPUSCULAR HGB 29.1 pg (27.0-31.0); MEAN CORPUSCULAR HGB CONC 32.3 g/dl (33.0-37.0); MEAN PLATELET VOLUME 10.2 fl (9.6-12.3); MONO # 0.1 10*3/uL (0.1-1.0); MONO % 0.9 % (3.0-9.0); NEUT # 7.9 10*3/uL (2.3-7.9); PLATELET COUNT AUTOMATED 260 10*3/uL (130-400); RED BLOOD COUNT 4.71 10*6/uL (4.50-5.90); RED CELL DISTRI WIDTH 13.3 % (0-14.5); WHITE BLOOD COUNT 9.2 10*3/uL (4.8-10.8)
[2017-07-31 06:45] LABS: ALBUMIN 2.9 gm/dl (3.1-4.5); ALKALINE PHOSPHATASE 87 U/L (45-117); BUN 10 mg/dl (7-24); CHLORIDE 94 mmol/L (98-107); CHOLESTEROL 148 mg/dL (<200); CREATININE 0.77 mg/dL (0.70-1.30); FREE T4 0.97 ng/dl (0.76-1.46); HDL CHOLESTEROL 36 mg/dl (40-60); LDL CHOLESTEROL 94 mg/dL (9-159); MAGNESIUM 1.8 mg/dL (1.5-2.1); PHOSPHOROUS 4.1 mg/dL (2.5-4.9); POTASSIUM 4.5 mmol/L (3.5-5.1); SGOT/AST 22 IU/L (3-35); SGPT/ALT 37 U/L (12-78); SODIUM 132 mmol/L (136-145); TOTAL PROTEIN 7.5 gm/dL (6.4-8.2); TRIGLYCERIDES 89 mg/dl (<150); VLDL CHOLESTEROL 18 mg/dL (6-40)
[2017-07-31 06:50] LABS: THYROID STIM HORMONE (HS) 0.354 uIU/ml (0.358-4.75)
[2017-07-31 07:41] LABS: VITAMIN D, 25-HYDROXY 18.1 ng/mL (30-100)
[2017-07-31 08:00] VITALS: BP 128/74
[2017-07-31 12:00] VITALS: BP 119/60
[2017-07-31 16:00] VITALS: BP 138/66
[2017-07-31 20:00] VITALS: BP 117/63
[2017-08-01] VITALS: BP 121/62
[2017-08-01 08:00] VITALS: BP 118/94
[2017-08-01] MEDS ORDERED: DOXYCYCLINE100 MG PO (10:38)
[2017-08-01] MEDS ORDERED: PREDNISONE10 MG PO (10:38)
== END 2017-08-01 11:53 | disposition home or self-care (01) | DRG 191 ==
LOC: ED 12:20 → EDHOLD 14:30 → 5E 14:30
PROVIDERS: Emergency Medicine; Registered Nurse; ADMIT Internal Medicine
DX: J44.0 Chronic obstructive pulmonary disease with (acute) lower respiratory infection (principal); J96.11 Chronic respiratory failure with hypoxia; E67.8 Other specified hyperalimentation; E44.0 Moderate protein-calorie malnutrition; E66.2 Morbid (severe) obesity with alveolar hypoventilation; E11.65 Type 2 diabetes mellitus with hyperglycemia; J45.51 Severe persistent asthma with (acute) exacerbation; Z68.44 Body mass index [BMI] 60.0-69.9, adult; J44.1 Chronic obstructive pulmonary disease with (acute) exacerbation; I89.0 Lymphedema, not elsewhere classified; E78.00 Pure hypercholesterolemia, unspecified; I10 Essential (primary) hypertension; J20.9 Acute bronchitis, unspecified; Z78.9 Other specified health status; Z99.81 Dependence on supplemental oxygen; Z87.01 Personal history of pneumonia (recurrent); Z79.4 Long term (current) use of insulin; Z79.899 Other long term (current) drug therapy; Z90.49 Acquired absence of other specified parts of digestive tract; Z90.89 Acquired absence of other organs; Z72.0 Tobacco use; Z82.49 Family history of ischemic heart disease and other diseases of the circulatory system; Z83.3 Family history of diabetes mellitus; Z82.5 Family history of asthma and other chronic lower respiratory diseases

== ENCOUNTER 2017-12-22 19:00 | Inpatient (IN) | payer OTHER, MEDICARE ==
[~2017-12-22] VITALS: Ht 170.1 cm; Wt 174.8 kg
--- NOTE | ~2017-12-22 | PR ---
[place], [place] PROGRESS NOTE NAME: GRACIELA GUEVARA JR [facility] #: [id number] UNIT #: [id number] ROOM: 402 DOCTOR: CYNDIE YANCEY MD,BAM BIRTHDATE: [birth year] DOS: 12/25/2017 SUBJECTIVE: The patient has been noted with significant reduction and improvement in symptoms of shortness of breath. There were symptoms of coughing and chest pain reported. This morning, he has ambulated without oxygen and did pretty good. The edema of the lower extremity continued to improve progressively with diuretics. OBJECTIVE: VITAL SIGNS: Normal temperature, respiratory rate 20, heart rate 77, and blood pressure is 111/52. The pulse oxygen saturation on 3 liters nasal cannula is 98% saturation. HEENT: Chronic obesity. Head was atraumatic. Eyes nonicterus. NECK: Supple. CARDIOVASCULAR SYSTEM: S1 and S2 audible. LUNGS: Without any wheezing or crackles. ABDOMEN: Soft and nontender. EXTREMITIES: Chronic changes. IMPRESSION: The patient with resolution of shortness of breath, resolving acute congestive heart failure with diastolic dysfunction, and improving exacerbation of bronchial asthma. PLAN OF MANAGEMENT: Continuation of current therapy. The patient at this time is without any changes. Continue other supportive plan of management and care plan. Usual treatment. Other supportive therapy plan of care and management. Usual care. BAM AGEE MD CM:PNTRANS [id number] BAM YANCEY MD 12/25/17 7824 interface
--- NOTE | ~2017-12-22 | PR ---
[place], [place] PROGRESS NOTE NAME: GRACIELA GUEVARA JR [facility] #: [id number] UNIT #: [id number] ROOM: 402 DOCTOR: CYNDIE YANCEY MD,BAM BIRTHDATE: [birth year] DOS: 12/24/2017 PULMONARY PROGRESS NOTE SUBJECTIVE: is 27 1018. The patient is noted comfortable at this time with reduction in the symptoms of shortness of breath. The shortness of breath has not been completely resolved, but improving. The patient was noted with difficulty ambulation because of shortness of breath yesterday. This morning, he was seen sitting on the chair. He denies symptoms of chest pain or hemoptysis. Denies coughing. Denies any pain of the lower extremities. Edema of the lower extremity for the patient was noted continued gradual reduction. Denies any symptoms of headache, nausea, vomiting or diarrhea. The remaining review of systems of the patient was noted negative. OBJECTIVE: VITAL SIGNS: For the patient, which has been recorded showed the temperature noted normal, respiratory rate 20, heart rate of 56-86, blood pressure 108/64 to 117/46. Intake for the patient 2900 mL, output 5950 mL. Negative fluid balance for the patient was noted approximately 3 liters. Pulse ox saturation on 3 liters nasal cannula at 100% saturation. HEENT: Shows head was atraumatic, eyes nonicterus. NECK: Supple. CARDIOVASCULAR: S1, S2 audible. LUNGS: The patient was noted without any wheezing. Breaths are noted mildly decreased. Scattered crackles. ABDOMEN: Soft and obese. EXTREMITIES: The patient shows severe obesity with chronic lymphedema with superimposed edema resolving. VISIBLE SKIN: The patient was noted chronic venous stasis pigmentation without any changes. CENTRAL NERVOUS SYSTEM: The patient was intact. MUSCULOSKELETAL: No acute deformities. LABORATORY DATA: Chest x-ray which was obtained for the patient this morning that I ordered shows resolution of previously noted pulmonary venous congestion markings. There were no pleural effusions or abnormal pulmonary infiltration seen. BMP this morning, the patient's glucose 380, BUN normal, creatinine was normal, sodium 130, CO2 of 33. CBC: WBC count 13.2, hemoglobin 13.2, hematocrit 40.1, platelet count was normal. IMPRESSION: 1. The patient has been currently noted with progressive reduction and resolution of acute respiratory symptoms secondary to acute congestive heart failure with diastolic dysfunction. 2. Resolving acute exacerbation of bronchial asthma. 3. Severely uncontrolled diabetes mellitus and hyperglycemia secondary to the use of corticosteroids as well. PLAN OF TREATMENT: The patient was encouraged to continue with ambulation today to assess the response and improvement in the respiratory symptoms as well. The [place], [place] PROGRESS NOTE NAME: GRACIELA GUEVARA JR UNIT #: [id number] ROOM: [facility] DOCTOR: CYNDIE YANCEY MD,BAM BIRTHDATE: [birth year] Solu-Medrol dose will be decreased to 40 mg daily for the patient today. Continuation of the bronchodilators, use of his own CPAP from home settings as well. Usual care and other additional treatment changes need to be made for this patient based on the progression of the illness. BAM AGEE MD CM:PNTRANS [id number] BAM YANCEY MD 12/24/17 4406 interface
--- NOTE | ~2017-12-22 | CON ---
[place], [place] REPORT OF CONSULTATION NAME: GRACIELA GUEVARA JR [facility] #: [id number] UNIT #: [id number] ROOM: 402 DOCTOR: BAM GONZÁLES MD BIRTHDATE: [birth year] DOS: 12/23/2017 PULMONARY CONSULTATION, EVALUATION AND MANAGEMENT REASON FOR CONSULTATION: Assess the patient's symptoms of shortness of breath. HISTORY OF PRESENT ILLNESS: This is a 47-year-old white male who has been known to me with history of uncomplicated severe persistent bronchial asthma with obstructive sleep apnea disorder and other issues. The patient presented to the Emergency Room yesterday, brought by his . The patient stated the symptoms of shortness of breath have been noted significantly worsened, associated with severe wheezing, which became audible later on. The patient's shortness of breath is occurring with very minimal exertion, it is sometimes noted at rest. He was also reporting increased edema of the lower extremities. He does have very minimal cough. The patient denies symptoms of chest pain or hemoptysis. From yesterday the patient stated the swelling of the lower extremities has been noted decreased and shortness breath was also decreased as well. The wheezing was still present intermittently, but not as severe as previously noted and it is not audible. REVIEW OF SYSTEMS: CONSTITUTIONAL: Fatigue and tiredness noted without any symptoms of fever or chills. EYES: Denies any burning, redness, tenderness, or discharge. EARS, NOSE, AND THROAT: No sore throat, hoarseness, otalgia, postnasal drainage, or epistaxis. CARDIOVASCULAR: Denies angina pain, edema, or pain in the lower extremities. GASTROINTESTINAL: No dysphagia, nausea, vomiting, diarrhea, abdominal pain, hematemesis, or melena. Severe morbid obesity. GENITOURINARY: Denies dysuria, suprapubic pain, or hematuria. SKIN: Chronic venous stasis pigmentation in lower extremities without any abnormal skin rashes and ulcers reported. MUSCULOSKELETAL: There was no acute joint pain, deformity, or tenderness reported. CENTRAL NERVOUS SYSTEM: No dizziness, headache, diplopia, syncopal episodes, or seizures. Remaining systems were reviewed. They were noted all negative. PAST MEDICAL HISTORY: The patient noted with: 1. Uncomplicated severe persistent bronchial asthma. 2. Type 2 diabetes mellitus. 3. Obstructive sleep apnea disorder. 4. Chronic lymphedema and venous stasis with stasis dermatitis of the bilateral lower extremities. 5. Severe morbid obesity. 6. Chronic hypoxic respiratory failure, use of oxygen supplementation. 7. Congestive heart failure with diastolic dysfunction and also suspected cor pulmonale. [place], [place] REPORT OF CONSULTATION NAME: GRACIELA GUEVARA JR UNIT #: [id number] ROOM: 402 DOCTOR: CYNDIE YANCEY MD,BAM BIRTHDATE: [birth year] PAST SURGICAL HISTORY: 1. Appendectomy. 2. T and A. 3. Therapeutic bronchoscopy, the last one done in 12/2016. SOCIAL HISTORY: The patient is and lives at home. Denies history of alcohol use, illicit drug use, or any occupation-related pulmonary exposure. FAMILY HISTORY: Noted for diabetes, congestive heart failure, and coronary artery disease. MEDICATIONS: Medication at this time used by the patient noted as simvastatin, Dulera, Levemir insulin, lisinopril, vitamin D, Lasix 40 mg IV daily, Mucinex, Lovenox for DVT prophylaxis, Solu-Medrol 60 mg every 8 hours, Tylenol, Rocephin, and Zithromax. DRUG ALLERGIES: As no known drug allergies. PHYSICAL EXAMINATION: GENERAL: A 47-year-old white male currently noted to be awake and alert without acute distress, currently sitting on the chair, in his room. The height of the patient noted as 5 feet 7 inches, weight of 292 pounds, BMI 61.5. VITAL SIGNS: Normal temperature, respiratory rate 20-22, heart rate of 109-96, blood pressure 132/74-123/64. Intake for the patient 490 mL, output 1400 mL, negative fluid balance of 910 mL. Pulse ox saturation 5 liters nasal cannula is 95% saturation this morning and on 3 liters at 94% saturation. HEENT: Severe morbid obesity. Head was atraumatic. Eyes nonicterus. NECK: Supple. It was obese. Severe posterior pharyngeal space with high tongue base and crowding of soft tissue structures. LUNGS: The patient noted with general reduction in the breath sounds. There were no wheezing or crackles heard at the present time. ABDOMEN: Noted with severe morbid obesity. EXTREMITIES: Superimposed edema with chronic lymphedema. Chronic venous stasis pigmentation. CENTRAL NERVOUS SYSTEM: The patient was noted without any gross focal neurologic deficits. Cranial nerves 2-12 intact. MUSCULOSKELETAL: The patient was noted without any deformities at this time. LABORATORY DATA: Lactic acid yesterday 1.8 on admission. The PT, PTT yesterday normal on admission. CBC on 12/22/2017 noted as normal CBC. The CMP of the patient on 12/22/2017, glucose 336, BUN and creatinine were normal. Sodium 133, carbon dioxide 34. The CBC of the patient this morning, WBC count 11.3, otherwise normal. BMP, glucose 392, BUN and creatinine normal, sodium 132. IMAGING STUDIES: Chest x-ray, 2 views, which was done in the Emergency Room was personally reviewed, it shows mild pulmonary venous congestion markings. IMPRESSION: 1. The patient who has been currently admitted to the hospital with acute on chronic hypoxic respiratory failure with increased oxygen requirement related to [place], [place] REPORT OF CONSULTATION NAME: GRACIELA GUEVARA JR UNIT #: [id number] ROOM: 402 DOCTOR: JEANIE GONZÁLES MDM BIRTHDATE: [birth year] acute congestive heart failure, the patient with diastolic dysfunction, very likely cause. Possibly concomitant exacerbation of bronchial asthma cannot be completely excluded. 2. Uncontrolled hyperglycemia of the patient with further worsening with the use of the corticosteroids. 3. Severe morbid obesity. 4. Obstructive sleep apnea disorder. PLAN OF MANAGEMENT: I agree with the use of the diuretics. The dose of Solu-Medrol has been decreased to 60 mg q.8h., 40 mg b.i.d., with the reduction further with improvement of the symptom. The antibiotic use has been discontinued since it has not been needed at the present time. Component of a right-sided heart failure would be considered for the patient as well with cor pulmonale secondary to severe morbid obesity. The chest x-ray of the patient will be repeated tomorrow morning. The patient was encouraged about ambulation as well. Supportive therapy, plan of management. Oxygen supplementation titration to maintain an oxygen saturation of 92% or greater. Additional treatment changes of the patient will continue to be made based on progression of the illness. The patient was advised about ambulation with use of the oxygen supplementation to further assess the improvement in the respiratory status. Usual care. DVT prophylaxis will be continued as in progress. Thanks for allowing me to participate in care of this patient. BAM AGEE MD CM:CONSTR:REPORT OF CONSULTATION 1119 12/23/17 2340 interface
[~2017-12-22 19:00] MED LIST changes: +DOXYCYCLINE100 MG PO; +LEVEMIR FL100 UNIT/1 SQ; +NOVOLOG FL100 UNIT/1 SQ
[2017-12-22 19:08] VITALS: BP 127/71
[2017-12-22 19:45] LABS: BASO % 0.4 % (0.0-1.0); EOS # 0.3 10*3/uL (0.0-0.4); EOS % 3.2 % (1.0-4.0); HEMATOCRIT 42.1 % (42.0-52.0); HEMOGLOBIN 13.5 g/dl (14.0-18.0); LYMPH % 30.6 % (27.0-41.0); MEAN CELL VOLUME 88.6 fl (80.0-94.0); MEAN CORPUSCULAR HGB 28.4 pg (27.0-31.0); MEAN CORPUSCULAR HGB CONC 32.1 g/dl (33.0-37.0); MEAN PLATELET VOLUME 10.4 fl (9.6-12.3); MONO # 0.7 10*3/uL (0.1-1.0); NEUT # 5.7 10*3/uL (2.3-7.9); NEUT % 58.5 % (47.0-73.0); PLATELET COUNT AUTOMATED 248 10*3/uL (130-400); RED BLOOD COUNT 4.75 10*6/uL (4.50-5.90); WHITE BLOOD COUNT 9.8 10*3/uL (4.8-10.8)
[2017-12-22 19:53] LABS: ACT PARTIAL THROMBO TIME 24.3 SECONDS (20.8-31.5)
[2017-12-22 20:06] LABS: ALBUMIN 3.1 gm/dl (3.1-4.5); ALKALINE PHOSPHATASE 106 U/L (45-117); BUN 9 mg/dl (7-24); CHLORIDE 93 mmol/L (98-107); CREATININE 0.79 mg/dL (0.70-1.30); LIPASE 150 U/L (73-393); POTASSIUM 4.2 mmol/L (3.5-5.1); SGOT/AST 20 IU/L (3-35); SGPT/ALT 25 U/L (12-78); SODIUM 133 mmol/L (136-145); TOTAL PROTEIN 7.5 gm/dL (6.4-8.2)
[2017-12-22 20:12] LABS: TROPONIN I < 0.015 ng/ml (<0.045)
[2017-12-22 21:09] VITALS: BP 123/64
[2017-12-22] MEDS ORDERED: LANTUS SOL100 UNIT/1 SQ (23:07)
[2017-12-22 23:15] VITALS: BP 153/98
[2017-12-23 06:01] LABS: BASO % 0.3 % (0.0-1.0); EOS % 0.1 % (1.0-4.0); HEMATOCRIT 42.6 % (42.0-52.0); HEMOGLOBIN 13.7 g/dl (14.0-18.0); LYMPH # 1.1 10*3/uL (1.3-4.4); LYMPH % 9.7 % (27.0-41.0); MEAN CELL VOLUME 88.6 fl (80.0-94.0); MEAN CORPUSCULAR HGB 28.5 pg (27.0-31.0); MEAN CORPUSCULAR HGB CONC 32.2 g/dl (33.0-37.0); MEAN PLATELET VOLUME 10.6 fl (9.6-12.3); MONO # 0.1 10*3/uL (0.1-1.0); MONO % 0.7 % (3.0-9.0); NEUT % 88.8 % (47.0-73.0); PLATELET COUNT AUTOMATED 236 10*3/uL (130-400); RED BLOOD COUNT 4.81 10*6/uL (4.50-5.90); RED CELL DISTRI WIDTH 13.9 % (0-14.5); WHITE BLOOD COUNT 11.3 10*3/uL (4.8-10.8)
[2017-12-23 06:32] LABS: BUN 12 mg/dl (7-24); CHLORIDE 91 mmol/L (98-107); PHOSPHOROUS 3.3 mg/dL (2.5-4.9); POTASSIUM 4.4 mmol/L (3.5-5.1); SODIUM 132 mmol/L (136-145)
[2017-12-23 06:40] LABS: THYROID STIM HORMONE (HS) 0.295 uIU/ml (0.358-4.75)
[2017-12-23 07:35] LABS: VITAMIN D, 25-HYDROXY 12.3 ng/mL (30-100)
[2017-12-23 08:00] VITALS: BP 126/90; BP 132/74
[2017-12-23 11:51] VITALS: BP 120/74; BP 134/86
[2017-12-23 16:00] VITALS: BP 123/59
[2017-12-23 20:00] VITALS: BP 125/46
[2017-12-24 00:11] VITALS: BP 117/46
[2017-12-24 07:25] LABS: BASO % 0.2 % (0.0-1.0); HEMATOCRIT 40.1 % (42.0-52.0); HEMOGLOBIN 13.2 g/dl (14.0-18.0); LYMPH % 15.2 % (27.0-41.0); MEAN CELL VOLUME 88.3 fl (80.0-94.0); MEAN CORPUSCULAR HGB 29.1 pg (27.0-31.0); MEAN CORPUSCULAR HGB CONC 32.9 g/dl (33.0-37.0); MEAN PLATELET VOLUME 10.7 fl (9.6-12.3); MONO # 0.9 10*3/uL (0.1-1.0); MONO % 6.6 % (3.0-9.0); NEUT # 10.2 10*3/uL (2.3-7.9); NEUT % 77.3 % (47.0-73.0); PLATELET COUNT AUTOMATED 247 10*3/uL (130-400); RED BLOOD COUNT 4.54 10*6/uL (4.50-5.90); RED CELL DISTRI WIDTH 13.9 % (0-14.5); WHITE BLOOD COUNT 13.2 10*3/uL (4.8-10.8)
[2017-12-24 07:53] LABS: CHLORIDE 92 mmol/L (98-107); POTASSIUM 4.3 mmol/L (3.5-5.1); SODIUM 130 mmol/L (136-145)
[2017-12-24 07:57] LABS: BUN 14 mg/dl (7-24); CREATININE 0.74 mg/dL (0.70-1.30)
[2017-12-24 08:00] VITALS: BP 108/64
[2017-12-24 12:00] VITALS: BP 139/78
[2017-12-24 16:00] VITALS: BP 124/61
[2017-12-24 20:00] VITALS: BP 118/61
[2017-12-25] VITALS: BP 116/66
[2017-12-25 06:00] LABS: BASO % 0.1 % (0.0-1.0); EOS % 0.1 % (1.0-4.0); HEMATOCRIT 40.2 % (42.0-52.0); HEMOGLOBIN 12.7 g/dl (14.0-18.0); LYMPH # 3.1 10*3/uL (1.3-4.4); LYMPH % 29.5 % (27.0-41.0); MEAN CELL VOLUME 90.3 fl (80.0-94.0); MEAN CORPUSCULAR HGB 28.5 pg (27.0-31.0); MEAN CORPUSCULAR HGB CONC 31.6 g/dl (33.0-37.0); MEAN PLATELET VOLUME 10.9 fl (9.6-12.3); MONO # 0.8 10*3/uL (0.1-1.0); MONO % 7.8 % (3.0-9.0); NEUT # 6.5 10*3/uL (2.3-7.9); PLATELET COUNT AUTOMATED 213 10*3/uL (130-400); RED BLOOD COUNT 4.45 10*6/uL (4.50-5.90); WHITE BLOOD COUNT 10.5 10*3/uL (4.8-10.8)
[2017-12-25 06:13] LABS: BUN 15 mg/dl (7-24); CHLORIDE 94 mmol/L (98-107); CREATININE 0.78 mg/dL (0.70-1.30); POTASSIUM 3.9 mmol/L (3.5-5.1); SODIUM 136 mmol/L (136-145)
[2017-12-25 08:00] VITALS: BP 111/52
[2017-12-25] MEDS ORDERED: PREDNISONE10 MG PO (11:28)
== END 2017-12-25 12:43 | disposition home or self-care (01) | DRG 871 ==
LOC: ED 19:00 → 4E 21:49 → EDHOLD 21:49 → 4E 22:09
PROVIDERS: Internal Medicine; Nurse Practitioner Family; Student in an Organized Health Care Education/Training Program
DX: A41.9 Sepsis, unspecified organism (principal); I50.43 Acute on chronic combined systolic (congestive) and diastolic (congestive) heart failure; J96.21 Acute and chronic respiratory failure with hypoxia; E44.0 Moderate protein-calorie malnutrition; J18.9 Pneumonia, unspecified organism; J44.0 Chronic obstructive pulmonary disease with (acute) lower respiratory infection; E11.65 Type 2 diabetes mellitus with hyperglycemia; J45.901 Unspecified asthma with (acute) exacerbation; T38.0X5A Adverse effect of glucocorticoids and synthetic analogues, initial encounter; G47.33 Obstructive sleep apnea (adult) (pediatric); E66.01 Morbid (severe) obesity due to excess calories; E87.1 Hypo-osmolality and hyponatremia; J44.1 Chronic obstructive pulmonary disease with (acute) exacerbation; D64.9 Anemia, unspecified; E55.9 Vitamin D deficiency, unspecified; F17.200 Nicotine dependence, unspecified, uncomplicated; Z82.5 Family history of asthma and other chronic lower respiratory diseases; Z82.49 Family history of ischemic heart disease and other diseases of the circulatory system; Z79.4 Long term (current) use of insulin; Z90.49 Acquired absence of other specified parts of digestive tract; Z79.51 Long term (current) use of inhaled steroids; Z68.44 Body mass index [BMI] 60.0-69.9, adult; Z79.899 Other long term (current) drug therapy; Y92.89 Other specified places as the place of occurrence of the external cause

== ENCOUNTER → 2018-01-01 | Outpatient (CLI) | payer OTHER, MEDICARE ==
[~2018-01-01] MED LIST changes: +LANTUS SOL100 UNIT/1 SQ
== END | disposition home or self-care (01) ==
LOC: RAD 08:32
DX: M79.89 Other specified soft tissue disorders (principal); Z91.81 History of falling

== ENCOUNTER 2018-03-02 13:28 | Inpatient (IN) | payer OTHER, MEDICARE ==
[~2018-03-02] VITALS: Ht 170.2 cm; Wt 173.7 kg
--- NOTE | ~2018-03-02 | PR ---
[place], [place] PROGRESS NOTE NAME: [facility]EL[facility] JR [id number] UNIT #: [id number] ROOM: 512 DOCTOR: CYNDIE YANCEY MD,BAM BIRTHDATE: [birth year] DOS: 03/06/2018 SUBJECTIVE: He has been noted with significant improvement and reduction of symptoms of shortness of breath. The patient was started on prednisone yesterday. He was continued on diuretic and has achieved his baseline weight after significant weight loss. He has Unna boots also placed in the lower extremities by the Podiatry services yesterday. OBJECTIVE: VITAL SIGNS: Normal temperature, respiratory rate 18, heart rate of 102, blood pressure 115/65. The pulse oxygen saturation on 3 liters nasal cannula 95% saturation recorded. HEENT: Examination shows head was atraumatic. Eyes nonicterus. NECK: Supple. CARDIOVASCULAR: S1, S2 audible. LUNGS: Clear. Wheezing today. ABDOMEN: Soft. Chronic obesity. EXTREMITY: Remains unchanged. IMPRESSION: The patient with improvement continued in acute exacerbation of bronchial asthma with some fluid retention with edema of the lower extremities. PLAN OF MANAGEMENT: No changes in the plan from the patient's pulmonary standpoint. Continue the patient's current therapy, plan of care as previously. Usual care, other supportive plan of management and treatment. BAM AGEE MD CM:PNTRANS [id number] BAM YANCEY MD 03/07/18 0111 interface
--- NOTE | ~2018-03-02 | CON ---
[place], [place] REPORT OF CONSULTATION NAME: GRACIELA GUEVARA JR [facility] UNIT #: [id number] ROOM: 512 DOCTOR: STAR GIBSON DPM BIRTHDATE: [birth year] DOS: 03/05/2018 SUBJECTIVE: The patient is a 47-year-old male with edema, venous stasis of both lower extremities for Unna boot application. Current visit medical problems, acute and chronic respiratory failure, acute heart failure. CRP elevated, for tobacco use cessation counseling, hyperglycemia, hypochloremia, hyponatremia, lactic acidosis, lymphopenia, tachycardia and tachypnea. PAST MEDICAL PROBLEMS: Chronic back pain, chronic respiratory failure, COPD, essential hypertension, hyperlipidemia, morbid obesity due to excess calories, normocytic anemia, oxygen dependent, protein-calorie malnutrition, moderate sleep apnea, tobacco abuse, type 2 diabetes with hyperglycemia and current use of insulin and vitamin. PAST SURGICAL HISTORY: Appendectomy, bronchoscopy, tonsillectomy and adenoidectomy. SOCIAL HISTORY: History of tobacco use 1 can of snuff daily. Denies illicit drug use or alcohol. Denies smoking. FAMILY HISTORY: Mother at age 80 of asthma, cardiac disease, [place]. Father, heart disease history, at age 76, history of cardiac disease, diabetes, [place]. Sister, history of cardiac disease, diabetes. ALLERGIES: None. PHYSICAL EXAMINATION: EXTREMITIES: Lower extremity examination: Pedal pulses diminished due to edema of bilateral lower extremity. There is venous stasis dermatitis, bilateral lower extremity with venous insufficiency, mild erythema and no signs of acute drainage. Venous Doppler bilateral lower leg was negative for DVT. ASSESSMENT: Venous stasis dermatitis, bilateral; venous insufficiency, bilateral; edema, bilateral; diabetes. PLAN: Evaluation and management. New boots were applied to both lower extremities, which can be kept on up to a full week. The patient can be seen for additional Unna boot applications upon discharge. [place], [place] REPORT OF CONSULTATION NAME: GRACIELA GUEVARA JR [facility] UNIT #: [id number] ROOM: 512 DOCTOR: STAR GIBSON DPM BIRTHDATE: [birth year] STAR GIBSON DPM CM:CONSTR:REPORT OF CONSULTATION 1221 03/05/18 2754 interface
--- NOTE | ~2018-03-02 | CON ---
[place], [place] REPORT OF CONSULTATION NAME: GRACIELA GUEVARA JR [facility] #: [id number] UNIT #: [id number] ROOM: 512 DOCTOR: BAM GONZÁLES MD BIRTHDATE: [birth year] DOS: 03/03/2018 PULMONARY CONSULTATION, EVALUATION AND MANAGEMENT REQUESTED BY: Dr. Lackey. REASON FOR CONSULTATION: Assess the patient with recurrent exacerbation of bronchial asthma. HISTORY OF PRESENT ILLNESS: This 47-year-old white male was seen in my office. The patient has been noted with increased respiratory symptoms for the last several days. He has been noted with significant shortness of breath occurring with minimal exertion. He was also noted with wheezing that was seen by the primary care physician recently and wheezing was noted as per . The patient was recommended using the nebulized bronchodilator that has been used by the patient, but the symptoms had been noted progressive and nonresolving with current treatment. Shortness of breath of the patient was noted significantly severe with nonproductive cough at times. Chest tightness was noted without symptoms of chest pain. There were no symptoms of hemoptysis. The patient was seen in my office yesterday and noted with acute ongoing exacerbation of uncomplicated severe persistent bronchial asthma with increased peripheral edema. The patient was recommended for hospitalization. The patient has been assessed and admitted to the hospital. This morning, the patient was sitting on the chair and stated reduction of the respiratory symptoms in the last 24 hours. REVIEW OF SYSTEMS: CONSTITUTIONAL: Fatigue and tiredness noted without any symptoms of fever or chills. EYES: Denies burning, redness, or tenderness. EARS, NOSE, AND THROAT SYMPTOMS: No sore throat, hoarseness, otalgia, postnasal drainage, or epistaxis. CARDIOVASCULAR: Edema of the lower extremities, which is noted progressive, not responding to current use of the Lasix 80 mg daily. The patient denies symptoms of palpitation or angina pain. GASTROINTESTINAL: Severe morbid obesity noted without any abdominal pain, hematemesis, melena, or hematochezia. GENITOURINARY: No dysuria, suprapubic pain, hematuria. SKIN: Noted with chronic venous stasis pigmentation changes in lower extremities including dryness of the skin. No lesions or rashes reported. MUSCULOSKELETAL: Denies any acute joint pain, redness, or tenderness. CENTRAL NERVOUS SYSTEM: Denies dizziness, headache, diplopia, or syncopal episode. Remaining systems were reviewed and they were noted all negative. PAST MEDICAL HISTORY: 1. Uncomplicated severe persistent bronchial asthma. 2. Chronic hypoxic respiratory failure, use of oxygen supplementation at 3-4 liters. 3. Type 2 diabetes mellitus. [place], [place] REPORT OF CONSULTATION NAME: GRACIELA GUEVARA JR UNIT #: [id number] ROOM: [facility] DOCTOR: BAM GONZÁLES MD BIRTHDATE: [birth year] 4. Obstructive sleep apnea disorder. 5. Chronic lymphedema and venous stasis, lower extremities. 6. History of congestive heart failure, diastolic dysfunction, suspected cor pulmonale as well. PAST SURGICAL HISTORY: 1. Appendectomy. 2. T and A. 3. Therapeutic bronchoscopy. SOCIAL HISTORY: The patient is and lives at home. Denies history of alcohol use or illicit drug use. FAMILY HISTORY: Noted remarkable for congestive heart failure, coronary artery disease, and diabetes mellitus. CURRENT MEDICATIONS: Current medications started for the patient on this admission: 1. Lasix 40 mg IV b.i.d. 2. Lisinopril 2.5 mg daily. 3. Vitamin D 2000 international units daily. 4. Lovenox 40 mg subcutaneous daily. 5. Protonix 40 mg daily. 6. Solu-Medrol 40 mg b.i.d. 7. Lantus insulin use. 8. Simvastatin 10 mg at bedtime. 9. Singulair 10 mg daily. 10. Dulera 200/5 two inhalations b.i.d. 11. DuoNeb for this patient q. 4 hours while awake. 12. IV Rocephin, Zithromax, and other p.r.n. medications use as well. DRUG ALLERGIES: The patient noted with no known drug allergies. PHYSICAL EXAMINATION: GENERAL: A 47-year-old male who has been currently sitting on the chair this morning without any acute distress, using oxygen supplementation. Height of 5 feet 7 inches, weight 400 pounds, BMI 62.7. VITAL SIGNS: For the patient shows normal temperature, respiratory rate 16-22, heart rate 91-110, blood pressure 131/71-128/67. Pulse oxygen saturation of the patient noted on 3 liters nasal cannula 98% saturation. HEENT: Examination shows head was atraumatic. Eyes nonicterus. NECK: Supple. CARDIOVASCULAR: S1, S2 audible. LUNGS: Noted with general reduction in breath sounds with mild expiratory wheezing, significant improvement noted since yesterday's examination. ABDOMEN: Severe morbid obesity. Bowel sounds present without tenderness. EXTREMITIES: The patient noted with chronic lymphedema and venous stasis pigmentation with partial reduction in edema of lower extremities was seen. MUSCULOSKELETAL: No significant acute findings. CENTRAL NERVOUS SYSTEM: Cranial nerves 2-12 intact. No focal deficit. [place], [place] REPORT OF CONSULTATION NAME: GRACIELA GUEVARA JR UNIT #: [id number] ROOM: 512 DOCTOR: CYNDIE YANCEY MD,BAM BIRTHDATE: [birth year] LABORATORY DATA: Lactic acid 2.3 on admission, noted 1.2 later on. PT and PTT yesterday noted with normal PT/PTT. CMP of the patient that was done yesterday, glucose 120, BUN and creatinine were normal, sodium 135. The CBC of the patient that was done this morning, WBC count 7.5, normal hemoglobin and hematocrit. PT/INR of the patient today was noted as 1.0. The CMP of the patient this morning, glucose 365, BUN and creatinine was normal. Sodium 130. IMAGING STUDIES: The chest x-ray of the patient that was done, 1 view, was personally reviewed and it does not show any acute pulmonary infiltration. IMPRESSION: 1. The patient who has been currently admitted to the hospital noted with acute exacerbation of uncomplicated severe persistent bronchial asthma and acute on chronic hypoxic respiratory failure with increased oxygen requirement as well as a superimposed congestive heart failure and cor pulmonale combination. The congestive heart failure noted with history of diastolic dysfunction. 2. Type 2 diabetes mellitus. 3. History of essential hypertension and hypercholesterolemia. PLAN OF MANAGEMENT: The patient would be continued on current dose of steroids. He is responding to treatment. Diuretic will be continued intravenous with close monitoring of BUN and creatinine. Use of the CPAP or BiPAP at home for the patient was also ordered as well. Outpatient assessment would be planned for the patient's reassessment of the sleep apnea disorder to maximize the management. Continuation of the current antibiotic of the patient would suffice for the medical management of acute tracheobronchitis. Other supportive therapy, plan of management and care plan. Usual treatment. Thanks for allowing me to participate in care of this patient. BAM AGEE MD CM:CONSTR:REPORT OF CONSULTATION 1114 03/04/18 0109 interface
--- NOTE | ~2018-03-02 | PR ---
[place], [place] PROGRESS NOTE [id number] #: [id number] ROOM: 512 DOCTOR: CYNDIE YANCEY MD,BAM BIRTHDATE: [birth year] DOS: 03/04/2018 SUBJECTIVE: The patient was noted comfortable at this time, resting, sitting on the chair. He denies symptoms of hemoptysis. The shortness of breath of the patient is improving. The wheezing was also improving progressively. OBJECTIVE: VITAL SIGNS: For the patient which has been recorded show the temperature noted normal, respiratory rate 20, heart rate of 180, blood pressure 132/70-126/66. Intake 2600 mL, output 3100 mL, negative fluid balance of 440 mL. Pulse ox saturation on 3 liters nasal cannula is 99% saturation of oxygen. HEENT: No acute change. NECK: Supple. CARDIOVASCULAR: S1, S2 audible. LUNGS: Noted clear of any wheezing or crackles at this time. ABDOMEN: Soft, nontender. EXTREMITIES: Still noted with significant edema. IMPRESSION: 1. Resolving acute exacerbation of bronchial asthma. 2. The patient with persistent edema of the lower extremity, possibly right-sided heart failure. The patient has been considered currently being assessed by the Cardiology Services. PLAN OF THERAPY: The patient's steroid dose has been discontinued by the primary care attending because of the hyperglycemia. Monitoring will be continued. If the patient develop wheezing, the patient may need to be started back on the diuretics. He was also planned for ultrasound of the lower extremities and Unna boots placed on the patient because of the chronic lymphedema management as well. BAM AGEE MD CM:PNTRANS 18 BAM YANCEY MD 03/04/182 interface
--- NOTE | ~2018-03-02 | PR ---
[place], [place] PROGRESS NOTE NAME: [id number] UN[facility] #: [id number] ROOM: 512 DOCTOR: CYNDIE YANCEY MD,BAM BIRTHDATE: [birth year] DOS: 03/05/2018 SUBJECTIVE: The patient's steroids were discontinued yesterday because of hyperglycemia by the primary care attending. He has been experiencing increased shortness of breath occurring this morning for the patient with walking only a few feet on a leveled surface and also complained of chest tightness and wheezing. He denies any symptoms of coughing or sputum expectoration. The patient's ultrasound of lower extremities was completed yesterday. Plan for possibility of Unna boot placement today. OBJECTIVE: VITAL SIGNS: For the patient, which has been recorded showed the temperature noted normal, respiratory rate 20, heart rate of 101, blood pressure 118/59, pulse oxygen saturation 3 liters nasal cannula 95% saturation. HEENT: No new change. NECK: Supple. CARDIOVASCULAR: S1, S2 audible. LUNGS: Noted with expiratory wheezing today. Breaths are noted mildly decreased. ABDOMEN: Soft and obese. EXTREMITIES: Still shows chronic edema with superimposed acute edema and dryness of the skin. IMPRESSION: 1. Worsening of the respiratory symptoms noted after discontinuation of corticosteroid and exacerbation of bronchial asthma. 2. Peripheral edema of the patient remains persistent. PLAN OF MANAGEMENT: The patient was started on prednisone 40 mg daily dose, which will be gradually tapered off. In the meantime, continue bronchodilator treatment as in progress. Usual care. Supportive plan of therapy and care. BAM AGEE MD CM:PNTRANS [id number] BAM YANCEY MD 03/06/18 0057 interface
[2018-03-02 13:34] VITALS: BP 144/87
[2018-03-02 14:16] LABS: BASO # 0.1 10*3/uL (0.0-0.1); BASO % 0.7 % (0.0-1.0); EOS # 0.3 10*3/uL (0.0-0.4); EOS % 3.5 % (1.0-4.0); HEMOGLOBIN 13.2 g/dl (14.0-18.0); LYMPH # 2.2 10*3/uL (1.3-4.4); LYMPH % 24.2 % (27.0-41.0); MEAN CELL VOLUME 89.7 fl (80.0-94.0); MEAN CORPUSCULAR HGB 28.9 pg (27.0-31.0); MEAN CORPUSCULAR HGB CONC 32.2 g/dl (33.0-37.0); MEAN PLATELET VOLUME 10.6 fl (9.6-12.3); MONO # 0.5 10*3/uL (0.1-1.0); MONO % 5.6 % (3.0-9.0); NEUT % 65.6 % (47.0-73.0); PLATELET COUNT AUTOMATED 231 10*3/uL (130-400); RED BLOOD COUNT 4.57 10*6/uL (4.50-5.90); RED CELL DISTRI WIDTH 13.9 % (0-14.5); WHITE BLOOD COUNT 9.2 10*3/uL (4.8-10.8)
[2018-03-02 14:25] LABS: ACT PARTIAL THROMBO TIME 22.6 SECONDS (20.8-31.5)
[2018-03-02 14:31] VITALS: BP 144/87
[2018-03-02 14:32] LABS: ALKALINE PHOSPHATASE 102 U/L (45-117); BUN 8 mg/dl (7-24); CHLORIDE 95 mmol/L (98-107); CREATININE 0.88 mg/dL (0.70-1.30); LIPASE 89 U/L (73-393); POTASSIUM 4.6 mmol/L (3.5-5.1); SGOT/AST 39 IU/L (3-35); SGPT/ALT 32 U/L (12-78); SODIUM 135 mmol/L (136-145); TROPONIN I < 0.015 ng/ml (<0.045)
[2018-03-02 15:25] VITALS: BP 114/87
[2018-03-02 15:45] VITALS: BP 146/89
[2018-03-02] MEDS ORDERED: SINGULAIR10 M1 PO (15:49)
[2018-03-02 20:00] VITALS: BP 131/71
[2018-03-03] VITALS: BP 124/73
[2018-03-03 06:52] LABS: BASO % 0.3 % (0.0-1.0); HEMATOCRIT 44.1 % (42.0-52.0); HEMOGLOBIN 14.2 g/dl (14.0-18.0); LYMPH # 1.4 10*3/uL (1.3-4.4); MEAN CORPUSCULAR HGB CONC 32.2 g/dl (33.0-37.0); MEAN PLATELET VOLUME 10.5 fl (9.6-12.3); MONO # 0.1 10*3/uL (0.1-1.0); MONO % 0.9 % (3.0-9.0); NEUT % 86.4 % (47.0-73.0); PLATELET COUNT AUTOMATED 231 10*3/uL (130-400); RED CELL DISTRI WIDTH 13.7 % (0-14.5); WHITE BLOOD COUNT 11.5 10*3/uL (4.8-10.8)
[2018-03-03 07:22] LABS: ALBUMIN 3.1 gm/dl (3.1-4.5); BUN 10 mg/dl (7-24); CHLORIDE 92 mmol/L (98-107); CREATININE 0.73 mg/dL (0.70-1.30); PHOSPHOROUS 2.8 mg/dL (2.5-4.9); SGOT/AST 25 IU/L (3-35); SGPT/ALT 40 U/L (12-78); SODIUM 130 mmol/L (136-145)
[2018-03-03 07:33] LABS: ALKALINE PHOSPHATASE 89 U/L (45-117); THYROID STIM HORMONE (HS) 0.289 uIU/ml (0.358-4.75); TOTAL PROTEIN 7.4 gm/dL (6.4-8.2)
[2018-03-03 08:00] VITALS: BP 128/67
[2018-03-03 11:28] VITALS: BP 143/68
[2018-03-03 16:00] VITALS: BP 124/58
[2018-03-03 20:00] VITALS: BP 107/49
[2018-03-04] VITALS: BP 102/40
[2018-03-04 06:43] LABS: BUN 11 mg/dl (7-24); CHLORIDE 95 mmol/L (98-107); CREATININE 0.81 mg/dL (0.70-1.30); POTASSIUM 3.6 mmol/L (3.5-5.1); SODIUM 136 mmol/L (136-145)
[2018-03-04 08:00] VITALS: BP 126/66
[2018-03-04 11:54] VITALS: BP 133/72
[2018-03-04 15:55] VITALS: BP 93/54
[2018-03-04 20:00] VITALS: BP 102/59
[2018-03-05] VITALS: BP 102/59
[2018-03-05 06:48] LABS: BASO % 0.4 % (0.0-1.0); EOS # 0.1 10*3/uL (0.0-0.4); HEMATOCRIT 42.7 % (42.0-52.0); HEMOGLOBIN 13.7 g/dl (14.0-18.0); LYMPH # 1.5 10*3/uL (1.3-4.4); LYMPH % 17.9 % (27.0-41.0); MEAN CELL VOLUME 89.7 fl (80.0-94.0); MEAN CORPUSCULAR HGB 28.8 pg (27.0-31.0); MEAN CORPUSCULAR HGB CONC 32.1 g/dl (33.0-37.0); MEAN PLATELET VOLUME 10.4 fl (9.6-12.3); MONO # 0.7 10*3/uL (0.1-1.0); MONO % 8.5 % (3.0-9.0); NEUT % 71.8 % (47.0-73.0); PLATELET COUNT AUTOMATED 194 10*3/uL (130-400); RED BLOOD COUNT 4.76 10*6/uL (4.50-5.90); RED CELL DISTRI WIDTH 14.1 % (0-14.5); WHITE BLOOD COUNT 8.4 10*3/uL (4.8-10.8)
[2018-03-05 07:47] LABS: BUN 15 mg/dl (7-24); CHLORIDE 94 mmol/L (98-107); POTASSIUM 2.9 mmol/L (3.5-5.1); SODIUM 134 mmol/L (136-145)
[2018-03-05 08:00] VITALS: BP 117/71
[2018-03-05 08:10] LABS: CREATININE 0.66 mg/dL (0.70-1.30)
[2018-03-05 12:00] VITALS: BP 118/59
[2018-03-05 16:00] VITALS: BP 128/73
[2018-03-05 20:00] VITALS: BP 95/47
[2018-03-06] VITALS: BP 104/78
[2018-03-06 08:00] VITALS: BP 115/65
[2018-03-06 08:08] LABS: BUN 10 mg/dl (7-24); CHLORIDE 94 mmol/L (98-107); CREATININE 0.66 mg/dL (0.70-1.30); POTASSIUM 3.3 mmol/L (3.5-5.1); SODIUM 134 mmol/L (136-145)
[2018-03-06] MEDS ORDERED: MUCINEX ER600 MG PO (11:13)
[2018-03-06] MEDS ORDERED: LEVAQUIN500 M2 PO (11:13)
[2018-03-06] MEDS ORDERED: LISINOPRIL5 MG PO (11:13)
[2018-03-06] MEDS ORDERED: PREDNISONE10 MG PO (11:30)
== END 2018-03-06 11:40 | disposition home or self-care (01) | DRG 291 ==
LOC: ED 13:28 → EDHOLD 15:12 → 5E 15:12
PROVIDERS: Emergency Medicine; Family Medicine; Internal Medicine; Student in an Organized Health Care Education/Training Program
DX: I11.0 Hypertensive heart disease with heart failure (principal); J96.21 Acute and chronic respiratory failure with hypoxia; E87.2 Acidosis; E44.0 Moderate protein-calorie malnutrition; J44.1 Chronic obstructive pulmonary disease with (acute) exacerbation; J45.901 Unspecified asthma with (acute) exacerbation; E87.1 Hypo-osmolality and hyponatremia; E11.65 Type 2 diabetes mellitus with hyperglycemia; Z68.44 Body mass index [BMI] 60.0-69.9, adult; I50.31 Acute diastolic (congestive) heart failure; E87.8 Other disorders of electrolyte and fluid balance, not elsewhere classified; F17.200 Nicotine dependence, unspecified, uncomplicated; J44.9 Chronic obstructive pulmonary disease, unspecified; D72.829 Elevated white blood cell count, unspecified; D72.810 Lymphocytopenia; I87.2 Venous insufficiency (chronic) (peripheral); I50.810 Right heart failure, unspecified; E55.9 Vitamin D deficiency, unspecified; G47.33 Obstructive sleep apnea (adult) (pediatric); E78.5 Hyperlipidemia, unspecified; Z71.6 Tobacco abuse counseling; Z79.4 Long term (current) use of insulin; Z90.49 Acquired absence of other specified parts of digestive tract; Z82.49 Family history of ischemic heart disease and other diseases of the circulatory system; Z83.3 Family history of diabetes mellitus; Z82.0 Family history of epilepsy and other diseases of the nervous system; Z79.51 Long term (current) use of inhaled steroids; Z79.1 Long term (current) use of non-steroidal anti-inflammatories (NSAID); Z79.899 Other long term (current) drug therapy

== ENCOUNTER 2018-04-09 07:58 | Emergency (ER) | payer OTHER, MEDICARE ==
[~2018-04-09] VITALS: Ht 170.1 cm; Wt 175.5 kg
--- NOTE | ~2018-04-09 | EKG ---
[place], [place] ELECTROCARDIOGRAM REPORT NAME: GRACIELA GUEVARA JR UNIT #: [id number] ROOM: DOCTOR: KATHERIN YUAN MD BIRTHDATE: [birth year] DOS: 04/09/2018 TIME: 0847 hours. FINDINGS: 1. Normal sinus rhythm at 100 beats per minute. 2. Low voltage in precordial leads. 3. The tracing is otherwise normal. 4. No previous tracing is available for comparison. KATHERIN YUAN MD CM:EKGRPT:ELECTROCARDIOGRAM REPORT [id number] KATHERIN YUAN MD
[~2018-04-09 07:58] MED LIST changes: +LEVAQUIN500 M2 PO; +LISINOPRIL5 MG PO; +MUCINEX ER600 MG PO; +SINGULAIR10 M1 PO
[2018-04-09 09:00] LABS: BASO # 0.1 10*3/uL (0.0-0.1); BASO % 0.5 % (0.0-1.0); EOS # 0.1 10*3/uL (0.0-0.4); EOS % 1.1 % (1.0-4.0); HEMATOCRIT 39.1 % (42.0-52.0); HEMOGLOBIN 12.9 g/dl (14.0-18.0); LYMPH # 2.7 10*3/uL (1.3-4.4); MEAN CELL VOLUME 90.7 fl (80.0-94.0); MEAN CORPUSCULAR HGB 29.9 pg (27.0-31.0); MEAN PLATELET VOLUME 10.1 fl (9.6-12.3); MONO # 0.7 10*3/uL (0.1-1.0); MONO % 6.4 % (3.0-9.0); NEUT # 7.1 10*3/uL (2.3-7.9); NEUT % 66.3 % (47.0-73.0); PLATELET COUNT AUTOMATED 274 10*3/uL (130-400); RED BLOOD COUNT 4.31 10*6/uL (4.50-5.90); RED CELL DISTRI WIDTH 14.8 % (0-14.5); WHITE BLOOD COUNT 10.7 10*3/uL (4.8-10.8)
[2018-04-09 09:19] LABS: ALBUMIN 3.3 gm/dl (3.1-4.5); ALKALINE PHOSPHATASE 122 U/L (45-117); BUN 8 mg/dl (7-24); CHLORIDE 94 mmol/L (98-107); POTASSIUM 4.1 mmol/L (3.5-5.1); SGOT/AST 18 IU/L (3-35); SGPT/ALT 30 U/L (12-78); SODIUM 134 mmol/L (136-145); TOTAL PROTEIN 7.4 gm/dL (6.4-8.2)
[2018-04-09 09:21] LABS: TROPONIN I < 0.015 ng/ml (<0.045)
[2018-04-09 09:30] VITALS: BP 128/82
[2018-04-09] MEDS ORDERED: Motrin,Rufen800 MG PO (09:53)
[2018-04-09] MEDS ORDERED: AMOXICILLIN500 M2 PO (09:53)
== END 2018-04-09 10:33 | disposition home or self-care (01) ==
LOC: ED 07:58
PROVIDERS: Student in an Organized Health Care Education/Training Program
DX: K04.7 Periapical abscess without sinus (principal); F10.10 Alcohol abuse, uncomplicated; Z79.4 Long term (current) use of insulin; Z79.899 Other long term (current) drug therapy; Z90.49 Acquired absence of other specified parts of digestive tract